=== PATIENT | male | born 1945 | race Caucasian/White ===

== ENCOUNTER → 2017-01-23 | Outpatient (CLI) | payer MEDICARE, BC ==
--- NOTE | 2017-01-23 20:38 | PN ---
DATE OF SERVICE: 01/23/2017 Rob is 71, seeing me in followup regarding his CPAP compliance. I diagnosed this patient as having severe obstructive sleep apnea with an AHI of 53. Currently he is utilizing BiPAP at a pressure of 12/8 cm of water utilizing a Simplus full-face mask, medium size. The patient reports marked clinical improvement while on BiPAP treatment. He is doing very well. His sleep quality has improved and his nocturia has also recovered. He is waking up refreshed and alert and awake during the day and his hypersomnia has completely recovered. He does not fall asleep during day-to-day activities, nor while driving. Sleep characteristics and quality have improved considerably. I checked his compliance data over the past 30 days, and based on this, the patient has been utilizing his machine more than 4 hours 100% of the time. His average BiPAP use is around 7.6 hours per night. Leak around the mask is around 7 L per minute. His AHI is down to 5. He has good humidity and good mask seal. No weight loss or weight gain. No other new-onset medical problems or comorbidities. CURRENT VITALS: BP 150/80, pulse 80, respiratory rate 16, temperature 98.2. Saturation is 96% on room air. Weight 233. GENERAL APPEARANCE: Calm, comfortable. HEENT: Negative for JVD. No goiter or neck masses. Crowding of posterior pharynx. LUNGS: Clear to auscultation. Heart sounds are regular rate and rhythm. Normal S1, S2. ABDOMEN: Soft, non-tender. No organomegaly. EXTREMITIES: No edema. No cyanosis or clubbing. IMPRESSION: 1. Symptomatic obstructive sleep apnea, severe; AHI of 54. The patient has undergone successful BiPAP therapy. 2. Severe nocturnal oxygen desaturation, recovered with BiPAP therapy. 3. Loud snoring, recovered with BiPAP therapy. 4. Hypersomnia, recovered with BiPAP therapy. Current [place] score is down to 3. PLAN: 1. Encourage weight loss. 2. Continue same BiPAP settings and same mask interface. 3. ( ) good sleep hygiene measures. 4. Clinically the patient has improved considerably, and he is benefitting from BiPAP treatment. See me back in a year's time in followup. [facility] HOSPITALPrasanth
== END | disposition home or self-care (01) ==
LOC: SLEEP 13:08
PROVIDERS: ATTEND Internal Medicine Critical Care Medicine
DX: G47.33 Obstructive sleep apnea (adult) (pediatric) (principal); G47.10 Hypersomnia, unspecified

== ENCOUNTER → 2017-06-22 | Outpatient (CLI) | payer MEDICARE, BC ==
[2017-06-22 07:46] LABS: Basophils # (A) 0.1 k/uL (0-0.2); Basophils % (A) 1 %; Eosinophils # (A) 0.5 k/uL (0-0.7); Eosinophils % (A) 6 %; HCT 51.5 % (39.0-53.0); HGB 16.1 gm/dL (13.0-17.5); Lymphocytes # (A) 3.7 k/uL (1.0-4.8); Lymphocytes % (A) 41 %; MCH 28.2 pg (25.0-35.0); MCHC 31.2 g/dL (31.0-37.0); MCV 90.5 fL (80.0-100.0); Mean Platelet Volume 7.3; Monocytes # (A) 0.4 k/uL (0-1.0); Monocytes % (A) 5 %; Neutrophils # (A) 3.9 k/uL (1.3-7.7); Neutrophils % (A) 44 %; Platelet Count 214 k/uL (150-450); RDW 14.9 % (11.5-15.5); WBC 8.9 k/uL (3.8-10.6)
[2017-06-22 09:55] LABS: ALT 45 U/L (21-72); AST 19 U/L (17-59); Albumin 4.2 g/dL (3.5-5.0); Alkaline Phosphatase 63 U/L (38-126); Anion Gap 9 mmol/L; Blood Urea Nitrogen 17 mg/dL (9-20); Calcium 9.7 mg/dL (8.4-10.2); Carbon Dioxide 31 mmol/L (22-30); Chloride 103 mmol/L (98-107); Cholesterol 185 mg/dL (<200); Glucose 116 mg/dL (74-99); HDL Cholesterol 44 mg/dL (40-60); LDL Cholesterol,Calculated 103 mg/dL (0-99); Potassium 4.5 mmol/L (3.5-5.1); Sodium 143 mmol/L (137-145); Total Bilirubin 0.5 mg/dL (0.2-1.3); Total Protein 6.8 g/dL (6.3-8.2); Triglycerides 189 mg/dL (<150)
[2017-06-22 10:12] LABS: T4, Free (Free Thyroxine) 1.14 ng/dL (0.78-2.19)
[2017-06-22 10:25] LABS: PSA Annual Screen 1.43 ng/mL (0.00-4.00)
== END | disposition home or self-care (01) ==
LOC: LABWHC1 07:10
PROVIDERS: ATTEND Internal Medicine
DX: E78.5 Hyperlipidemia, unspecified (principal); I10 Essential (primary) hypertension; Z12.5 Encounter for screening for malignant neoplasm of prostate
CPT/HCPCS: 84439; 80061; 80053; 84443; 85025; 36415; G0103

== ENCOUNTER → 2017-11-21 | Outpatient (CLI) | payer MEDICARE, BC ==
--- NOTE | 2017-11-22 10:35 | US ---
EXAMINATION TYPE: US groin RT DATE OF EXAM: 11/21/2017 COMPARISON: NONE CLINICAL HISTORY: R19.09 groin mass. Vascular right groin mass measuring 5.5 x 2.0 x 5.2cm. This could be a large lymph node. This does no t have complete filling and color-flow sonography to suggest pseudoaneurysm. IMPRESSION: 1. There appears be a very large right groin vascular mass may be a very large lymph node
== END | disposition home or self-care (01) ==
LOC: RADUSWWP 16:35
PROVIDERS: ATTEND Internal Medicine
DX: R19.09 Other intra-abdominal and pelvic swelling, mass and lump (principal)

== ENCOUNTER 2017-12-03 07:21 | Day surgery (SDC) | payer MEDICARE, BC ==
[2017-12-03 08:38] VITALS: TEMP 97.7
[2017-12-03 09:47] VITALS: BP 150/79; PULSE 64; RESP 16
--- NOTE | 2017-12-03 10:00 | US ---
ULTRASOUND GUIDED CORE BIOPSY RIGHT GROIN MASS: CLINICAL HISTORY: Right groin mass FINDINGS: The procedure was explained to the patient. The risks, complications, benefits and alternatives were discussed and any questions were answered. Informed consent was obtained. Patient was placed supin e on the ultrasound table and prepped and draped in the usual sterile fashion. Utilizing a 18-gauge core biopsy needle to passes were made into the requested mass. Patient was stable throughout the procedure. Pathology is pending. All elements of maximal barrier and sterile technique were utilized. IMPRESSION: 1. Successful ultrasound guided core biopsy right groin mass.
== END 2017-12-03 09:40 | disposition home or self-care (01) ==
LOC: RADPROMAIN 07:21
PROVIDERS: ATTEND Internal Medicine
DX: C82.05 Follicular lymphoma grade I, lymph nodes of inguinal region and lower limb (principal)
CPT/HCPCS: 20206; 76942; 88305; 88341; 88342

== ENCOUNTER → 2017-12-29 | Outpatient (CLI) | payer MEDICARE, BC ==
--- NOTE | 2017-12-29 14:15 | PE ---
EXAMINATION TYPE: PET CT fusion skull to thigh DATE OF EXAM: 12/29/2017 COMPARISON: Right groin ultrasound November 21, 2017 HISTORY: Lymphoma initial staging study on recent biopsy in November. TECHNIQUE: Following the intravenous administration of 15.35 mCi of F-18 FDG, whole body images are performed from the skull base to the midthigh. Images are reviewed on the computer in the coronal, a xial, and sagittal planes. Reconstructed rotating images are created on independent workstation and reviewed on the computer. A noncontrast CT is performed in conjunction with the PET scan. SCAN: Initial Scan FINDINGS: MEDIASTINUM MEAN SUV: 1.19 LIVER MEAN SUV: 2.6 SKULL BASE AND NECK: No suspicious areas of hypermetabolic uptake are present. CHEST, MEDIASTINUM, AND HILAR REGION: No areas of suspicious hypermetabolic uptake are present. ABDOMEN AND PELVIS: Corresponding to ultrasound and patient history there is large right groin mass m easuring 4.2 x 2.7 cm axial image 257, max SUV is 9.59. No additional areas of suspicious hypermetabolic masses or adenopathy are identified. Symmetric promi nent but subcentimeter lymph nodes in the bilateral groins axial image 241 do not show abnormal hyper metabolic uptake. OSSEOUS STRUCTURES: No areas of suspicious hypermetabolic uptake are seen. OTHER CT: Spine is straightened on sagittal images with mild multilevel spurring. There is mild to moderate mucosal thickening involving the ethmoid sinuses bilaterally with mild muco fiona thickening involving inferior frontal sinuses. There is mild mucosal thickening involving inferio r maxillary sinuses bilaterally. There is mild calcified plaque at right carotid bulb level. There is suspected right thyroid greater than 1 cm nodule axial image 74 that warrants follow-up. There is moderate coronary artery calcification is seen which is noted marker for coronary artery dis ease. There is coronary stent in the RCA distribution noted. There is calcified 4 mm right upper lobe nodule axial image 99. Liver is diffusely low dense consistent with fatty infiltration. There are diverticula throughout the colon most prominent in the left and sigmoid colon. There is no CT evidence for acute diverticulitis. There is mild to moderate calcified plaque of aorta extending into branch vessels. Bilateral gynecomastia is present. IMPRESSION: 1. Identification of biopsy-proven malignancy or lymphoma in the right groin. No metastatic disease o r additional suspicious adenopathy is evident. 2. Suspected greater than 1 cm right thyroid nodule, advise thyroid ultrasound to better evaluate and characterize.
== END | disposition home or self-care (01) ==
LOC: RADPETMAIN 08:14
PROVIDERS: ATTEND Internal Medicine Hematology & Oncology
DX: C82.05 Follicular lymphoma grade I, lymph nodes of inguinal region and lower limb (principal)
CPT/HCPCS: 78815; A9552

== ENCOUNTER 2018-01-15 05:49 | Day surgery (SDC) | payer MEDICARE, BC ==
[2018-01-10 09:36] VITALS: BMI 29.5
[~2018-01-15 05:49] MED LIST: Pre Op ABX Message 1 EACH MISC MISCELLANE ONE
[2018-01-15 06:30] VITALS: TEMP 98.2
[2018-01-15] MEDS ORDERED: LIDOCAINE 1% 20 ML VIAL (10MG/ML) FOR IV START INTRADERMA ONE (06:30)
[2018-01-15] MEDS: LACTATED RINGERS 1,000 ML IV SCH ×2 (06:30→06:55)
[2018-01-15] MEDS ORDERED: fentaNYL (PF) 50 MCG/ML 2 ML AMP ONE (06:57)
[2018-01-15] MEDS ORDERED: PROPOFOL 10 MG/ML 20 ML VIAL IV ONE (06:57)
[2018-01-15 07:43] VITALS: BP 149/83; PULSE 65; RESP 20
--- NOTE | 2018-01-15 09:29 | PCN ---
PROCEDURE NOTE DATE OF PROCEDURE: 01/15/2018 PREOPERATIVE DIAGNOSIS: Lymphoma. POSTOPERATIVE DIAGNOSIS: Lymphoma. ANESTHESIA: Local with IV systemic sedation. DETAILS: Utilizing sterile technique, the skin overlying the right iliac crest was prepared with Betadine and alcohol. After adequate sterile draping, systemic sedation and local anesthesia with 1% lidocaine, a size 11 4 inch Meteo Protectshidi needle was utilized to access the periosteum with ease. A total of 15 mL of aspirate and 3 cm bone core biopsies were obtained. The patient tolerated the procedure very well. There was no immediate procedure-related complications. TOTAL BLOOD LOSS: Less than 1 mL. RESULTS: Pending at this time. MMODL / IJN: [id number] /
[2018-01-15 10:01] LABS: Basophils % (A) 1 %; Eosinophils # (A) 0.4 k/uL (0-0.7); Eosinophils % (A) 5 %; HCT 46.9 % (39.0-53.0); Lymphocytes # (A) 2.9 k/uL (1.0-4.8); Lymphocytes % (A) 38 %; MCH 27.6 pg (25.0-35.0); MCV 86.3 fL (80.0-100.0); Mean Platelet Volume 7.5; Monocytes # (A) 0.4 k/uL (0-1.0); Monocytes % (A) 5 %; Neutrophils # (A) 3.6 k/uL (1.3-7.7); Neutrophils % (A) 48 %; Platelet Count 223 k/uL (150-450); RBC 5.44 m/uL (4.30-5.90); RDW 13.8 % (11.5-15.5); WBC 7.5 k/uL (3.8-10.6)
== END 2018-01-15 07:46 | disposition home or self-care (01) ==
LOC: OR 05:49
PROVIDERS: ATTEND Internal Medicine Hematology & Oncology
DX: C85.90 Non-Hodgkin lymphoma, unspecified, unspecified site (principal); I10 Essential (primary) hypertension; Z79.899 Other long term (current) drug therapy
CPT/HCPCS: 38222; 85025; J3010; J2704

== ENCOUNTER → 2018-04-09 | Outpatient (CLI) | payer MEDICARE, BC ==
--- NOTE | 2018-04-09 17:55 | SFUN ---
SLEEP CENTER FOLLOW UP NOTE Rob 72 and he is coming in for an annual check regarding obstructive sleep apnea. Rob is doing well. He has no specific complaints. He has severe KASSY with an AHI of 53. Currently on a BiPAP at a pressure of 12/8 cm of water. Since his last visit, he was diagnosed having non-Hodgkin's lymphoma treated by localized radiation therapy to the groin. He is currently on BiPAP with a pressure of 12 over 8. He is utilizing a Simplus full face mask. AHI is down to 5.7 while on treatment. He is averaging around 8.6 hours of CPAP use per night and CPAP use for more than 4 hours 100%. Leak is 4 L/minute. AHI while on treatment is down to 5.7, respiratory rate of 16, tidal volumes of 500. No major hypersomnia or sleepiness during the day. No other complaints otherwise for now, his weight has been stable with probably 4-5 pounds weight gain over the past 1 year. PHYSICAL EXAMINATION: BP is 148/65, pulse 82, respirations 16, temperature 98.3, saturation 96% on room air. Weight 238. Height is 6'0 ". BMI 32.2. GENERAL APPEARANCE: Calm, comfortable. Head is atraumatic, normocephalic. NECK: Supple. There is no JVD. No goiter or neck masses. LUNGS: Clear to auscultation. HEART: Sounds regular rate and rhythm. Normal S1, S2. No S3. No murmurs. ABDOMEN: Soft, nontender. No organomegaly. EXTREMITIES: No edema. No cyanosis or clubbing. NEUROLOGIC: Alert and oriented x3. There is no focal neurological deficits. PSYCHIATRIC: Is negative for anxiety or depression. IMPRESSION: 1. Severe symptomatic obstructive sleep apnea, AHI 54 currently on BiPAP, would continue with successful treatment, pressures of 12/8. 2. Severe nocturnal oxygen desaturation improved. 3. Loud snoring recovered. 4. Recent diagnosis of non-Hodgkin's lymphoma, treated. PLAN: 1. Continue BiPAP at the same level of pressure. 2. Encourage weight loss. 3. The compliance data was checked and numbers are all looking good. 4. The patient continues to benefit with a Simplus full face mask. 5. See me back in a year's time, earlier if needed. MMODL / IJN: [id number] /
== END | disposition home or self-care (01) ==
LOC: SLEEP 16:39
PROVIDERS: ATTEND Internal Medicine Critical Care Medicine
DX: G47.33 Obstructive sleep apnea (adult) (pediatric) (principal); Z85.72 Personal history of non-Hodgkin lymphomas; Z99.89 Dependence on other enabling machines and devices; Z92.3 Personal history of irradiation

== ENCOUNTER → 2018-05-20 | Outpatient (CLI) | payer MEDICARE, BC ==
--- NOTE | 2018-05-20 13:47 | CT ---
EXAMINATION TYPE: CT ChestAbdPelvis wo/w con DATE OF EXAM: 05/20/2018 COMPARISON: 12/29/2017 HISTORY: Recent diagnosis of lymphoma per patient CT DLP: 2920.6 mGycm Automated exposure control for dose reduction was used. CONTRAST: CT scan of the chest, abdomen and pelvis is performed with Oral Contrast and without and with IV Cont rast, patient injected with 100 mL of Isovue 300. FINDINGS: LUNGS: Calcified nodule in the right upper lobe measuring 6 mm most likely in the basis of a granulom a additional nodule seen on image 23 measuring 3 mm. There is a 2 mm nodule superior segment left low er lobe image 26. Subpleural nodule right upper lobe image 37 measuring 2 mm. Areas of subsegmental, consolidation posteriorly at the lung bases most typical of atelectasis. 2 mm nodule at the left lung base also noted. MEDIASTINUM: Small amount of fluid is seen superior pericardial recess compatible small pericardial e ffusion. Coronary artery calcification noted in the heart is at the upper limits of normal. Small hia kyrie hernia seen. Subcentimeter thyroid nodule suspected on the right. OTHER: Trace amount of gynecomastia noted. LIVER/GB: No significant abnormality is appreciated. PANCREAS: No significant abnormality is seen. SPLEEN: No significant abnormality is seen. ADRENALS: No significant abnormality is seen. KIDNEYS: Tiny hypodensity measuring 5 mm inferior pole right kidney and mid left kidney too small to characterize. Most likely related to tiny simple cysts. BOWEL: Diverticulosis of colon. No evidence of obstruction. I'll thickening the wall the right colon . LYMPH NODES: Large area of lymphadenopathy in the right inguinal region is markedly reduced in size n ow measuring 1.7 x 0.7 cm and previously measuring 4.2 x 2.7 cm. OSSEOUS STRUCTURES: Hypertrophic and degenerative changes of the vertebral column. Sclerotic density involving the right inferior pubic ramus likely related to bone island. Sclerotic density involving t he L4 vertebral segment is too small to characterize but likely related to a bone island. OTHER: Aorta of normal caliber. IMPRESSION: 1. There is marked interval reduction size of the right groin area of adenopathy now measuring 1.7 x 0.7 cm and previously measuring 4.2 x 2.7 cm. 2. Mild thickening the wall the right colon most likely the basis of incomplete distention. Correlate clinically to exclude a mild colitis or less likely mucosal lesion. 3. Subcentimeter right thyroid nodule. 4. There is a calcified nodule in the right lung which is compatible with a granuloma. Additional les s than 5 mm nodules too small to characterize which could be followed on six-month basis
== END | disposition home or self-care (01) ==
LOC: RADCTMAIN 11:23
PROVIDERS: ATTEND Radiology Radiation Oncology
DX: E04.1 Nontoxic single thyroid nodule (principal); K63.89 Other specified diseases of intestine; J84.10 Pulmonary fibrosis, unspecified; R59.0 Localized enlarged lymph nodes; C82.05 Follicular lymphoma grade I, lymph nodes of inguinal region and lower limb
CPT/HCPCS: 82565; 84520; 71270; 74178; 36415; Q9967

== ENCOUNTER → 2018-08-17 | Outpatient (CLI) | payer MEDICARE, BC ==
[2018-08-17 08:34] LABS: Basophils # (A) 0.1 k/uL (0-0.2); Basophils % (A) 1 %; Eosinophils # (A) 0.4 k/uL (0-0.7); Eosinophils % (A) 5 %; HCT 47.7 % (39.0-53.0); HGB 15.6 gm/dL (13.0-17.5); Lymphocytes # (A) 3.2 k/uL (1.0-4.8); Lymphocytes % (A) 39 %; MCH 28.8 pg (25.0-35.0); MCHC 32.6 g/dL (31.0-37.0); MCV 88.2 fL (80.0-100.0); Mean Platelet Volume 7.2; Monocytes # (A) 0.4 k/uL (0-1.0); Monocytes % (A) 5 %; Neutrophils # (A) 3.9 k/uL (1.3-7.7); Neutrophils % (A) 47 %; Platelet Count 195 k/uL (150-450); RDW 13.9 % (11.5-15.5); WBC 8.2 k/uL (3.8-10.6)
[2018-08-17 17:29] LABS: Anion Gap 6.1 mmol/L (4.00-12.00); Calcium 9.7 mg/dL (8.7-10.3); Carbon Dioxide 28.9 mmol/L (21.6-31.8); Potassium 4.5 mmol/L (3.5-5.5)
== END ==
LOC: LABWHC1 08:12
PROVIDERS: ATTEND Radiology Radiation Oncology
DX: C82.05 Follicular lymphoma grade I, lymph nodes of inguinal region and lower limb (principal); C82.00 Follicular lymphoma grade I, unspecified site; Z92.3 Personal history of irradiation
CPT/HCPCS: 36415; 80048; 84153; 85025

== ENCOUNTER → 2018-11-18 | Outpatient (CLI) | payer MEDICARE, BC ==
--- NOTE | 2018-11-18 08:27 | CT ---
EXAMINATION TYPE: CT ChestAbdPelvis wo con DATE OF EXAM: 11/18/2018 COMPARISON: 05/20/2018 HISTORY: Follicular lymphoma grade I, lymph nodes of inguinal region and lower limb CT DLP: 1695 mGycm. Automated Exposure Control for Dose Reduction was Utilized. TECHNIQUE: CT scan of the thorax, abdomen and pelvis is performed without IV contrast. FINDINGS: LUNGS: Calcified nodule in the right upper lobe measuring 6 mm most likely in the basis of a granulom a additional nodule seen on image 23 measuring 3 mm. There is a 2 mm nodule superior segment left low er lobe. Subpleural nodule right upper lobe measuring 2 mm. Areas of subsegmental, consolidation post eriorly at the lung bases most typical of atelectasis. There are additional 2 mm nodule nodules at th e left lung base also noted. 2 mm additional subpleural right lung nodules also noted. Nodules are st able relative to prior exam. MEDIASTINUM: Small amount of fluid is seen superior pericardial recess compatible small pericardial e ffusion. Coronary artery calcification noted in the heart is at the upper limits of normal. Small hia kyrie hernia seen. Subcentimeter thyroid nodule suspected on the right. OTHER: Incidental note made of gynecomastia. LIVER/GB: No significant abnormality is appreciated. PANCREAS: No significant abnormality is seen. SPLEEN: No significant abnormality is seen. ADRENALS: No significant abnormality is seen. KIDNEYS: Tiny hypodensity measuring 5 mm inferior pole right kidney and mid left kidney too small to characterize. Most likely related to tiny simple cysts. Nonobstructing punctate 1 mm mid pole right r enal calculus. BOWEL: Diverticulosis of colon. No evidence of obstruction. I'll thickening the wall the right colon . LYMPH NODES: Right inguinal lymph node measures 1.3 x 0.7 cm and previously measured 1.7 x 0.7 cm.. OSSEOUS STRUCTURES: Hypertrophic and degenerative changes of the vertebral column. Sclerotic density involving the right inferior pubic ramus likely related to bone island. Sclerotic density involving t he L4 vertebral segment is too small to characterize but likely related to a bone island. OTHER: Aorta of normal caliber. IMPRESSION: 1. Right inguinal lymph node appears similar in size measuring 1.3 x 0.7 cm and producing measuring 1 .7 x 0.7 cm. 2. Stable right-sided thyroid nodule. 3. Stable pulmonary nodules too small to characterize measuring 5 mm or less. Additional 6 month foll ow-up could be obtained to document stability over the course of 2 years.
== END | disposition home or self-care (01) ==
LOC: RADCTMAIN 07:36
PROVIDERS: ATTEND Radiology Radiation Oncology
DX: C82.05 Follicular lymphoma grade I, lymph nodes of inguinal region and lower limb (principal); R91.8 Other nonspecific abnormal finding of lung field; E04.1 Nontoxic single thyroid nodule; Z92.3 Personal history of irradiation
CPT/HCPCS: 71250; 74176

== ENCOUNTER → 2019-05-27 | Outpatient (CLI) | payer MEDICARE, BC ==
--- NOTE | 2019-05-27 13:25 | CT ---
EXAMINATION TYPE: CT ChestAbdPelvis wo con DATE OF EXAM: 05/27/2019 COMPARISON: CT chest abdomen pelvis dated 11/18/2018 and 05/20/2018 with PET/CT of 12/29/2017 HISTORY: Follow up scan per patient. Grade I follicular lymphoma. CT DLP: 1116.3 mGycm. Automated Exposure Control for Dose Reduction was Utilized. TECHNIQUE: CT scan of the thorax, abdomen and pelvis is performed without IV contrast. FINDINGS: LUNGS: Calcified right midlung granuloma on image 24. There are scattered 2-3 mm solid pulmonary nodu les marked on the images that appear stable. There is no pleural effusion or pneumothorax seen. Th e tracheobronchial tree is patent. MEDIASTINUM: There are no greater than 1 cm hilar or mediastinal lymph nodes. No pericardial effusi on is seen. Moderate coronary artery calcifications. OTHER: Approximately 1.9 cm right thyroid nodules also stable. Mild bilateral symmetric retroareolar probable gynecomastia. LIVER/GB: Change hypoattenuation along the hepatic dome on image 47 could relate to volume averaging from the adjacent diaphragm.. PANCREAS: No significant abnormality is seen. SPLEEN: No significant abnormality is seen. ADRENALS: No significant abnormality is seen. KIDNEYS: Too small to accurately characterize renal lesions are better seen on the prior. Nonobstruct ing punctate right midpole renal calculus measures 1 to 2 mm. BOWEL: Scattered colonic diverticula without pericolonic fat stranding. No dilated large or small bow el. Slightly low lying small bowel in the right lower quadrant. GENITAL ORGANS: No gross abnormality seen. LYMPH NODES: No greater than 1cm abdominal or pelvic lymph nodes are appreciated. The previously enla rged right superficial inguinal lymph node seen on the PET/CT of 12/29/2017 is now barely perceptible measuring only 4 mm in short axis. OSSEOUS STRUCTURES: Stable sclerotic focus of the bilateral ischium, probable bone island. Similar le lila of L4 is unchanged. Mild multilevel degenerative change of the spine. IMPRESSION: 1. No new adenopathy in the chest, abdomen, or pelvis. The previously enlarged right superficial ingu inal lymph node is now nearly imperceptible. 2. Possible stable hepatic lesion versus more likely volume averaging from the adjacent diaphragm. 3. Stability of the 2 to 3 mm multiple pulmonary nodules and right thyroid nodule. Continued surveill ance is recommended.
== END | disposition home or self-care (01) ==
LOC: RADCTMAIN 11:15
PROVIDERS: ATTEND Radiology Radiation Oncology
DX: E04.1 Nontoxic single thyroid nodule (principal); R91.8 Other nonspecific abnormal finding of lung field; C82.00 Follicular lymphoma grade I, unspecified site; Z92.3 Personal history of irradiation
CPT/HCPCS: 71250; 74176

== ENCOUNTER → 2019-05-30 | Outpatient (CLI) | payer MEDICARE, BC ==
[2019-05-30 07:24] LABS: Basophils # (A) 0.1 k/uL (0-0.2); Basophils % (A) 1 %; Eosinophils # (A) 0.5 k/uL (0-0.7); Eosinophils % (A) 6 %; HCT 46.6 % (39.0-53.0); HGB 15.5 gm/dL (13.0-17.5); Lymphocytes # (A) 2.9 k/uL (1.0-4.8); Lymphocytes % (A) 37 %; MCH 29.2 pg (25.0-35.0); MCHC 33.2 g/dL (31.0-37.0); Mean Platelet Volume 7.4; Monocytes # (A) 0.4 k/uL (0-1.0); Monocytes % (A) 5 %; Neutrophils # (A) 3.7 k/uL (1.3-7.7); Neutrophils % (A) 48 %; Platelet Count 192 k/uL (150-450); RDW 13.5 % (11.5-15.5); WBC 7.7 k/uL (3.8-10.6)
[2019-05-30 12:04] LABS: T4, Free (Free Thyroxine) 1.1 ng/dL (0.80-1.80)
[2019-05-30 12:15] LABS: African American GFR (CKD) 62.7 (60.0-200.0); Albumin 4.3 g/dL (3.80-4.90); Albumin/Globulin Ratio 2.69 (1.60-3.17); Anion Gap 9.8 mmol/L (4.00-12.00); BUN/Creat Ratio 14.62 Ratio (12.00-20.00); Calcium 9.7 mg/dL (8.7-10.3); Carbon Dioxide 28.2 mmol/L (21.6-31.8); Chol/HDL Ratio 3.91; Globulin 1.6 g/dL (1.6-3.3); LDL Cholesterol,Calculated 88.6 mg/dL (0.0-131.0); Non-African American GFR(CKD) 54.1 (60.0-200.0); Potassium 4.3 mmol/L (3.5-5.5); Total Bilirubin 0.5 mg/dL (0.2-1.2); Total Protein 5.9 g/dL (6.2-8.2); VLDL Calculation 39.4 mg/dL (5.00-40.00)
== END | disposition home or self-care (01) ==
LOC: LABWHC1 06:53
PROVIDERS: ATTEND Internal Medicine
DX: Z00.00 Encounter for general adult medical examination without abnormal findings (principal); E78.5 Hyperlipidemia, unspecified
CPT/HCPCS: 84439; 80061; 80053; 84443; 85025; 36415; G0103

== ENCOUNTER → 2019-06-20 | Outpatient (CLI) | payer MEDICARE, BC ==
--- NOTE | 2019-06-20 15:02 | CT ---
EXAMINATION TYPE: CT soft tissue neck w con DATE OF EXAM: 06/20/2019 COMPARISON: None HISTORY: lymphoma CT DLP: 548 mGycm CONTRAST: Patient injected with 80 mL of Isovue 300. TECHNIQUE: Axial images at 3 mm thick sections. Reconstructed images in the coronal plane and sagitt al plane are reviewed. FINDINGS: Limited CT sections are obtained the lung apices. The lung apices appear clear. There is a 1.0 cm lymph node in the pretracheal space within the [id number]. CT neck: The torus tubarius and fossa of [place] are normal. [employer] spaces are normal. Ther e is mucosal thickening within the right maxillary sinus and ethmoid air cells. Parotid glands appear normal and symmetrical. Submandibular glands, are normal. Parapharyngeal spac es are normal. The hypopharynx appears within normal limits. Small lymph nodes are in the right supraclavicular region. There is a 1.4 cm lymph node at the level of the thyroid in the right supraclavicular region. Series 3 image 31. There are multiple right neck lymph nodes which are enlarged. A number of lymph nodes which are enlarged are posterior to the right sternocleidomastoid muscle. These were not present on the PET/CT of 12/29/2017 Thyroid is heterogenous and has a hypodense lesion within the mid right lobe thyroid measuring 1.2 cm . Osseous structures are normal. IMPRESSIONS: 1. Multiple enlarged right side neck lymph nodes extending from the supraclavicular region to the sub sternocleidomastoid muscle region near the skull base. Recommend follow-up PET CT.
== END | disposition home or self-care (01) ==
LOC: RADCTMAIN 05:47
PROVIDERS: ATTEND Otolaryngology
DX: R59.9 Enlarged lymph nodes, unspecified (principal); C82.05 Follicular lymphoma grade I, lymph nodes of inguinal region and lower limb; Z92.3 Personal history of irradiation
CPT/HCPCS: 82565; 84520; 70491; 36415; Q9967

== ENCOUNTER → 2019-07-04 | Outpatient (CLI) | payer MEDICARE, BC ==
--- NOTE | 2019-07-07 13:05 | PE ---
Nuclear medicine PET/CT HISTORY: Lymphoma, subsequent Patient received 12.3 mCi F-18 FDG intravenously in delayed scanning was performed from the skull bas e to the mid thighs. Localization and attenuation correction CT scan was performed. Correlation to soft tissue neck CT 07/17/2019, CT chest abdomen pelvis 05/27/2019, prior nuclear medic ine PET/CT 12/29/2017 Neck and chest: The right-sided cervical adenopathy is extensive as noted on prior neck CT with SUV 1 5.3, there is associated hypermetabolic uptake present, abnormal soft tissue extends into the region of the piriform sinus on the right and also shows hypermetabolic uptake SUV 19.2, there is abnormal u ptake along the posterior and anterior cervical chains, supraclavicular region on the right where the re is corresponding adenopathy, SUV 8-14.2. No mediastinal, axillary, or hilar adenopathy. No evident pleural effusion. No change in the appearan ce of the lungs. There are coronary artery calcifications present. ABDOMEN: No retroperitoneal adenopathy. No evident ascites or liver mass. Diverticular change associa jessie with the sigmoid colon. Prostate calcifications are present. Left groin shows nonenlarged nodes with associated hypermetabolic uptake, SUV 2.7-4.4. Osseous structures show no suspicious hypermetabolic uptake. Uptake along the anus and colon is likel y physiologic. IMPRESSION: Abnormal hypermetabolic uptake as described
== END | disposition home or self-care (01) ==
LOC: RADPETMAIN 16:24
PROVIDERS: ATTEND Internal Medicine Hematology & Oncology
DX: R93.89 Abnormal findings on diagnostic imaging of other specified body structures (principal); C82.00 Follicular lymphoma grade I, unspecified site
CPT/HCPCS: 78815; A9552

== ENCOUNTER → 2019-07-29 | Outpatient (CLI) | payer MEDICARE, BC ==
--- NOTE | 2019-07-29 22:59 | PN ---
PROGRESS NOTE This is a very pleasant 74-year-old gentleman who has a known history of obstructive sleep apnea with an AHI of 53. He has been maintained on BiPAP at a pressure of 12/8 cm of water. He has a simplest full face mask and is tolerating the device very well. He has utilized the device 28/30 days averaging approximately 9.2 hours. The leak is 12 L/minute. Tidal volume is 500, respiratory rate 17, minute ventilation 9.0. His AHI is down to 5.4 with a total AI of 4.3 and central AI 2.2. He has been doing well from the sleep standpoint. However, he was recently diagnosed with lymphoma and had a lymph node resection of the right neck in the tonsil biopsy. He has received 1 round of chemotherapy and is planning for another round next week. Currently, his weight has remained stable at 234 pounds with a BMI of 31.7. PHYSICAL EXAM: This is a very pleasant 74-year-old gentleman in no acute distress. Vital signs revealed blood pressure 148/94, heart rate 92, respirations 16, temperature is 98.2. He is 95% O2 saturation on room air. Weight 234 pounds, 6 foot 1 inch, BMI 31.7 with an [place] Sleepiness Scale score of 3. His head is normocephalic. Sclerae anicteric. There is some crowding in the posterior pharynx. His neck is short, supple. Trachea midline. His lungs are clear anterior and posteriorly. Heart regular S1, S2. His abdomen is obese, soft, nontender. Bowel sounds are present. There is no significant peripheral edema. Peripheral pulses are intact. IMPRESSION: 1. Severe symptomatic obstructive sleep apnea with AHI of 54, currently on BiPAP with a treatment of 12.8. 2. Severe nocturnal oxygen desaturation, improved. 3. Loud snoring, recovered. 4. Recent diagnosis of non-Hodgkin's lymphoma. PLAN: The patient's case was reviewed and discussed with Dr. Martins. He is doing well as far as his sleep apnea is concerned. We will continue with his current settings. He has the equipment that he needs. He will see us back in 1 year or call sooner with any questions or concerns. I, the cosigning physician, performed a history and physical examination on the patient. Lung sounds are clear. Maintain O2 saturation in 90s on room air. I discussed the assessment and plan of care with my nurse practitioner, Krystle Bah. I attest to the above progress note as dictated by her. MMRAMILAL / IJN: [id number] /
== END | disposition home or self-care (01) ==
LOC: SLEEP 16:45
PROVIDERS: ATTEND Internal Medicine Critical Care Medicine
DX: G47.33 Obstructive sleep apnea (adult) (pediatric) (principal); C85.90 Non-Hodgkin lymphoma, unspecified, unspecified site; Z99.89 Dependence on other enabling machines and devices

== ENCOUNTER → 2019-10-10 | Outpatient (CLI) | payer MEDICARE, BC ==
--- NOTE | 2019-10-13 08:16 | PE ---
EXAMINATION TYPE: PET CT fusion skull to thigh DATE OF EXAM: 10/10/2019 COMPARISON: CT soft tissue neck 06/20/2019, CT chest abdomen pelvis 05/27/2019 Prior PET/CT: 07/04/2019 HISTORY: Lymphoma TECHNIQUE: Following the intravenous administration of 12.0 mCi of F-18 FDG, whole body images are p erformed from the skull base to the midthigh. Images are reviewed on the computer in the coronal, ax ial, and sagittal planes. Reconstructed rotating images are created on independent workstation and r eviewed on the computer. A localization and attenuation correction CT is performed in conjunction w ith the PET scan. DLP: 483.10 mGycm SCAN: Subsequent Blood glucose: 148 mg/dL Average Mediastinum SUV: 1.61 Average Liver SUV: 2.47 FINDINGS: Uptake is at the left antecubital injection site. NECK: No abnormal uptake THORAX: No abnormal uptake ABDOMEN: No abnormal uptake PELVIS: No abnormal uptake OSSEOUS STRUCTURES: No abnormal uptake LOCALIZATION CT: There may be a nodule on the inferior pole right lobe thyroid. Some beam hardening a rtifact is also present causing some limitation to this level. The ascending thoracic aorta at the pu lmonary artery is 4.7 cm. The main pulmonary artery the bifurcation is 2.6 cm. Coronary artery calcif ication is present. COMPARISON: Previous marked abnormal uptake within the right neck is not evident on the current exam. Underlying adenopathy is not identified. IMPRESSION: 1. No suspicious uptake to suggest recurrent or residual lymphoma by PET CT. Previous marked uptake w ithin enlarged lymph nodes within the right neck are not evident on the current exam. 2. Note is made of ascending thoracic aortic aneurysm measuring 4.7 cm AP dimension, stable from [facility].
== END | disposition home or self-care (01) ==
LOC: RADPETMAIN 07:22
PROVIDERS: ATTEND Internal Medicine Hematology & Oncology
DX: I71.2 Thoracic aortic aneurysm, without rupture (principal); C82.00 Follicular lymphoma grade I, unspecified site; C82.01 Follicular lymphoma grade I, lymph nodes of head, face, and neck
CPT/HCPCS: 78815; A9552

== ENCOUNTER → 2019-10-20 | Outpatient (CLI) | payer MEDICARE, BC ==
--- NOTE | 2019-10-20 15:44 | US ---
EXAMINATION TYPE: US venous doppler duplex LE LT DATE OF EXAM: 10/20/2019 3:29 PM COMPARISON: NONE CLINICAL HISTORY: M79.662 Pain in left lower leg. Intermittent left leg pain x 1 week, gets worse at night SIDE PERFORMED: Left TECHNIQUE: The lower extremity deep venous system is examined utilizing real time linear array sonog rosendo with graded compression, doppler sonography and color-flow sonography. VESSELS IMAGED: External Iliac Vein (EIV) Common Femoral Vein Deep Femoral Vein Greater Saphenous Vein * Femoral Vein Popliteal Vein Small Saphenous Vein * Proximal Calf Veins (* superficial vessels) Left Leg: Appears negative for DVT IMPRESSION: No evidence of DVT at this time.
== END | disposition home or self-care (01) ==
LOC: RADUSWWP 14:19
PROVIDERS: ATTEND Internal Medicine
DX: M79.662 Pain in left lower leg (principal)

== ENCOUNTER → 2020-04-02 | Outpatient (CLI) | payer MEDICARE, BC ==
--- NOTE | 2020-04-04 13:05 | PE ---
Nuclear medicine PET/CT HISTORY: Lymphoma subsequent, C 82.01 Patient received 10.3 mCi F-18 FDG intravenously in delayed scanning was performed from the skull bas e to the mid thighs. Localization and attenuation correction CT scan has been performed. Correlation prior nuclear medicine PET/CT 10/10/2019, 07/04/2019 Chest and neck: The nodes present along the submandibular location on the right, along the anterior m argin of the sternocleidomastoid muscle at the level of the hyoid are stable as compared to most rece nt exam There is no supraclavicular adenopathy. No suspicious uptake. Uptake along the nose is likely physiologic. Calcification in the submandibular location on the left is stable. No evident lung mass . No pleural or pericardial effusion. Calcification the right upper lobe is stable consistent with ol d granulomatous disease. There are coronary artery calcifications present. Proximal descending aorta is aneurysmal at approximately 4 cm. Ascending aorta is 4.5 cm. ABDOMEN: There is uptake which is more intense at the level of the cecum as compared to previous exam inations. There is no evident liver mass or retroperitoneal adenopathy. No ascites. Osseous structures show possible marrow activation changes. IMPRESSION: No suspicious uptake present within the neck. Uptake within the cecum is indeterminate, i f bowel surveillance has not been performed, then it should be considered. Aortic aneurysm.
== END | disposition home or self-care (01) ==
LOC: RADPETMAIN 08:50
PROVIDERS: ATTEND Internal Medicine Hematology & Oncology
DX: I71.2 Thoracic aortic aneurysm, without rupture (principal); C82.01 Follicular lymphoma grade I, lymph nodes of head, face, and neck
CPT/HCPCS: 78815; A9552

== ENCOUNTER → 2020-04-27 | Day surgery (SDC) | payer MEDICARE, BC ==
[~2020-04-27] MED LIST changes: +LACTATED RINGERS 1,000 ML IV ONE; +LIDOCAINE 1% (10MG/ML) FOR IV START INTRADERMA ONE; +PROPOFOL 10 MG/ML 20 ML VIAL IV ONE; -Pre Op ABX Message 1 EACH MISC MISCELLANE ONE
[2020-04-27 12:13] VITALS: RESP 16; TEMP 98.7
--- NOTE | 2020-04-27 14:57 | P.PCN ---
Date of Procedure: 04/27/20 Description of Procedure: BRIEF HISTORY: 74-year-old male with a known history of B-cell lymphoma currently undergoing chemotherapy who presents for colonoscopy for evaluation of abnormal abdominal CAT scan, abnormal imaging of the abdomen. The patient denies any change in bowel habits. Last colonoscopy 7 years ago. PROCEDURE PERFORMED: Colonoscopy with biopsy, polypectomy and excessive. PREOPERATIVE DIAGNOSIS: Abnormal abdominal CAT scan/PET scan, abnormal imaging abdomen, last colonoscopy 7 years. ESTIMATED BLOOD LOSS: Minimal. IV sedation per Anesthesia. PROCEDURE: After informed consent was obtained, the patient, was brought into the endoscopy unit. IV sedation was administered by Anesthesia under continuous monitoring. Digital rectal examination was normal. Initially the Olympus CF-190 flexible video colonoscope was then inserted in the rectum, gradually advanced into the cecum without any difficulty. Careful examination was performed as the scope was gradually being withdrawn. Ileocecal valve and the appendiceal orifice were visualized. Prep was excellent. Mucosa of the cecum, ascending colon, transverse colon, descending colon, sigmoid colon, and rectum appeared normal. There was a large nonobstructing 5 cm mass located on the ileocecal valve which was quite friable, unclear if this is a malignancy given findings of indeterminate uptake on PET scan or a large polyp with multiple biopsies taken of the mass and a tattoo placed distal to the mass. 2 polyps removed from the transverse colon with cold snare polypectomy one which was flat and measuring 3 mm in size and one which was pedunculated and measuring 8 mm in size. Multiple left colonic diverticula noted. Low-grade internal hemorrhoids. Retroflexion was performed in the rectum and no lesions were seen. The patient tolerated the procedure well. IMPRESSION: Nonobstructing ileocecal mass, biopsied with tattoo placed distal to the mass. Severe left colonic diverticulosis. Internal hemorrhoids. RECOMMENDATIONS: Findings of this examination were discussed with the patient and his at length. Patient should follow-up in the clinic next week for results of the biopsies, with nursing staff instructed to make an appointment. Unclear if the mass is secondary to colonic lymphoma, a secondary malignancy, a large mass or other etiology. Further recommendations will be made pending the findings of the biopsies. The patient currently does have an appointment with the oncology in approximately one month, this may have been, pending pathology.
[2020-04-27 15:01] VITALS: BP 148/80; PULSE 64
== END ==
LOC: ORWHC2ENDO 11:47
PROVIDERS: ATTEND Internal Medicine
DX: D12.3 Benign neoplasm of transverse colon (principal); K57.30 Diverticulosis of large intestine without perforation or abscess without bleeding; K64.8 Other hemorrhoids; C85.10 Unspecified B-cell lymphoma, unspecified site; I10 Essential (primary) hypertension; Z79.899 Other long term (current) drug therapy; Z79.82 Long term (current) use of aspirin; Z98.52 Vasectomy status; Z98.890 Other specified postprocedural states
CPT/HCPCS: 45385; 45380; 45381; 88305; J2704; 44404

== ENCOUNTER → 2020-05-24 | Outpatient (CLI) | payer MEDICARE, BC ==
[2020-05-24 12:24] LABS: HCT 44.1 % (39.0-53.0); HGB 14.9 gm/dL (13.0-17.5); MCHC 33.7 g/dL (31.0-37.0); MCV 89.1 fL (80.0-100.0); Mean Platelet Volume 7.2; Platelet Count 181 k/uL (150-450); RBC 4.96 m/uL (4.30-5.90); RDW 14.2 % (11.5-15.5); WBC 9.5 k/uL (3.8-10.6)
[2020-05-24 12:30] LABS: Potassium 4.4 mmol/L (3.5-5.1)
== END | disposition home or self-care (01) ==
LOC: LABPAT 11:05
PROVIDERS: ATTEND Surgery
DX: Z01.818 Encounter for other preprocedural examination (principal); K63.9 Disease of intestine, unspecified
CPT/HCPCS: 36415; 80051; 85027; 93005

== ENCOUNTER → 2020-05-28 | Outpatient (CLI) | payer MEDICARE, BC | END | disposition home or self-care (01) | LOC: LABPAT 07:14 | PROVIDERS: ATTEND Surgery | DX: Z01.818 Encounter for other preprocedural examination (principal); I10 Essential (primary) hypertension | CPT/HCPCS: 86850; 86900; 86901 ==

== ENCOUNTER 2020-06-07 11:15 | Inpatient (IN) | payer MEDICARE, BC ==
[2020-06-03 11:37] VITALS: BMI 31.7
[~2020-06-07 11:15] MED LIST changes: +ACETAMINOPHEN TAB 500 MG TAB PO PRN; +ALVIMOPAN 12 MG CAPSULE PO PRN; +DEXAMETHASONE SOD PHOSPHATE 4 MG/ML 1 ML VIAL IV ONE; +HEPARIN SODIUM,PORCINE 5,000 UNIT/ML 1 ML VIAL SQ PRN; +HYDROmorphone 0.5 MG/0.5 ML SYRINGE IVP PRN; -LACTATED RINGERS 1,000 ML IV ONE; -LIDOCAINE 1% (10MG/ML) FOR IV START INTRADERMA ONE; +ONDANSETRON 4 MG/2 ML VIAL IVP ONE; -PROPOFOL 10 MG/ML 20 ML VIAL IV ONE; +metroNIDAZOLE-NS PMX 500 MG in SALINE 1 100ML.BAG IVPB PRN
[2020-06-07] MEDS: LACTATED RINGERS 1,000 ML IV SCH (12:18)
[2020-06-07] MEDS ORDERED: KETAMINE 10 MG/ML 20 ML VIAL ONE (12:58)
[2020-06-07] MEDS ORDERED: GLYCOPYRROLATE 0.2 MG/ML 2 ML VIAL ONE (12:58)
[2020-06-07] MEDS ORDERED: ROCURONIUM 10 MG/ML (10 ML VIAL) IV ONE (12:58)
[2020-06-07] MEDS ORDERED: PHENYLEPHRINE 10 MG/ML VIAL ONE (12:58)
[2020-06-07] MEDS ORDERED: NEOSTIGMINE 1 MG/ML 10 ML VIAL ONE (12:58)
[2020-06-07] MEDS ORDERED: LIDOCAINE 1% INJ 10MG/ML (20 ML MDV) ONE (12:58)
[2020-06-07] MEDS ORDERED: PROPOFOL 10 MG/ML 20 ML VIAL IV ONE (12:58)
[2020-06-07] MEDS ORDERED: fentaNYL (PF) 50 MCG/ML 2 ML AMP ONE (12:58)
[2020-06-07] MEDS ORDERED: SUCCINYLCHOLINE CHLORIDE 100 MG/5 ML SYR IV ONE (12:58)
[2020-06-07] MEDS ORDERED: BUPIVACAINE (PF) 0.25% 30 ML VIAL SQ ONE (13:37)
[2020-06-07] MEDS ORDERED: LACTATED RINGERS 1,000 ML IV ONE ×2 (15:15→17:03)
[2020-06-07] MEDS ORDERED: ONDANSETRON 4 MG/2 ML VIAL IVP PRN (17:06)
[2020-06-07] MEDS ORDERED: METOCLOPRAMIDE 5 MG/ML 2 ML VIAL IVP PRN (17:06)
[2020-06-07] MEDS ORDERED: HYDROmorphone 1 MG/ML 1 ML SYRINGE IVP PRN (17:06)
--- NOTE | 2020-06-07 17:13 | P.OP ---
Date of Procedure: 06/07/20 Procedure(s) Performed: PREOPERATIVE DIAGNOSIS: Right-sided colon mass POSTOPERATIVE DIAGNOSIS: Same, intra-abdominal adhesions PROCEDURE: Laparoscopic da Bess assisted right colectomy with intracorporeal anastomosis, laparoscopic lysis of adhesions SURGEON: Batsheva EBL: Minimal see anesthesia records ANESTHESIA: General COMPLICATIONS: None OPERATIVE PROCEDURE: Patient was placed on the operating table in the supine position. The patient was placed under general anesthesia. A Galeano catheter was placed. The patient's arms were tucked. The abdomen was prepped and draped in usual sterile fashion. Entrance into the perineal cavity occurred through a 5 mm optical trocar in the left midabdomen. This was performed without difficulty. The patient was noted to have a large amount of adhesions between the omentum and the abdominal wall extending down into the pelvis. A 12 mm trocar was placed in the left subcostal location. The laparoscopic anahi were used to carefully mobilize these adhesions fully. Once we had adequate space the initial 5 was changed over to an 8 mm trocar. An 8 mm trocar was placed in the left lower quadrant as well as a 12 mm trocar in the suprapubic location. The patient was placed in Trendelenburg right side up. The liver was free of any evidence of distant metastasis. He was difficult to visualize the patient's ileocolic pedicle well and the duodenum. Given the fact that this was a benign but unresectable polyp of high-grade dysplasia we decided to stay higher up on the mesentery for our dissection. For that reason we started with a lateral to medial dissection. The terminal ileum cecum and ascending colon were mobilized by incising the white line of Toldt. The bowel was able to be brought medially. The gastrocolic omentum was dissected away from the proximal transverse colon. Once we were able to visualize the transverse colon and hepatic flexure well the proximal transverse colon was divided using a blue load 60 stapler. The mesentery of the transverse colon was then divided using the vessel sealer as well. The small bowel was divided as well using a robotic blue load stapler. The remainder of the mesentery was again divided using the vessel sealer. A single area of bleeding was noted along the transverse colon staple line. This was controlled using a 12 mm clipper. No further bleeding was seen. At this point our specimen was free and placed in the left upper quadrant. The terminal ileum was brought in an isoperistaltic manner adjacent to the transverse colon. 2 separate 3-0 GI silk stay sutures were placed proximally and distally. Small enterotomy and colotomy took place. At that time stapler was fired along the a ntimesenteric border of both the small bowel and the colon. A single firing of the 60 mm blue load stapler was utilized. We had an adequate opening between the small bowel and colon at that point. The defect was closed transversely using a running 3-0 absorbable V lock suture using a connel technique. Once the defect was closed I ran the closure site once again using a running imbricating seromuscular technique with the same stitch. The previously placed 3-0 GI silk sutures acted as stay sutures proximally and distally. The suprapubic 12 mm trocar incision was then lengthened using the scalpel and the saphenous tissues and fascia were divided using electrocautery. The small Gm was placed within the abdominal cavity. Through the Gm wound protector the specimen was retrieved without difficulty. The fascia was closed using a running 0 Vicryl suture. The 12 mm trocar site fascia was closed using a [id number] 0 Vicryl suture. The subcutaneous tissues were irrigated with saline. The subcutaneous tissues were closed using 3-0 Vicryl sutures. The skin at all locations were closed using 4-0 Monocryl sutures. Dermabond was then utilized. Sterile dressings were applied. DISPOSITION: Stable to recovery room
[2020-06-07] MEDS: D5-0.45% NACL WITH KCL 20MEQ/L 1,000 ML IV SCH (22:19)
[2020-06-07] MEDS: FAMOTIDINE 20 MG/2 ML VIAL IV SCH (22:21)
[2020-06-07] MEDS: HEPARIN SODIUM,PORCINE 5,000 UNIT/ML 1 ML VIAL SQ SCH (22:32)
[2020-06-08] MEDS: D5-0.45% NACL WITH KCL 20MEQ/L 1,000 ML IV SCH ×3 (06:00→19:51)
[2020-06-08] MEDS: LACTATED RINGERS 1,000 ML IV SCH (06:01)
[2020-06-08 06:25] LABS: Basophils % (A) 0 %; Eosinophils % (A) 0 %; HCT 41.5 % (39.0-53.0); Lymphocytes # (A) 2.8 k/uL (1.0-4.8); Lymphocytes % (A) 25 %; MCH 30.1 pg (25.0-35.0); MCHC 33.6 g/dL (31.0-37.0); MCV 89.7 fL (80.0-100.0); Mean Platelet Volume 7.7; Monocytes # (A) 0.8 k/uL (0-1.0); Monocytes % (A) 7 %; Neutrophils # (A) 7.7 k/uL (1.3-7.7); Neutrophils % (A) 67 %; Platelet Count 174 k/uL (150-450); RBC 4.63 m/uL (4.30-5.90); RDW 14.2 % (11.5-15.5); WBC 11.6 k/uL (3.8-10.6)
[2020-06-08] MEDS: ALVIMOPAN 12 MG CAPSULE PO SCH ×2 (08:38→19:51)
[2020-06-08] MEDS: HEPARIN SODIUM,PORCINE 5,000 UNIT/ML 1 ML VIAL SQ SCH ×3 (08:38→19:51)
[2020-06-08] MEDS: FAMOTIDINE 20 MG/2 ML VIAL IV SCH ×2 (08:38→19:51)
[2020-06-08 10:15] LABS: African American GFR (CKD) 68.6 (60.0-200.0); Anion Gap 8.9 mmol/L (4.00-12.00); BUN/Creat Ratio 10.83 Ratio (12.00-20.00); Calcium 9.2 mg/dL (8.7-10.3); Carbon Dioxide 25.1 mmol/L (21.6-31.8); Non-African American GFR(CKD) 59.2 (60.0-200.0); Potassium 4.7 mmol/L (3.5-5.5)
--- NOTE | 2020-06-08 10:49 | P.PN ---
<Nitza Tan - Last Filed: 06/08/20 10:44> Subjective Progress Note Date: 06/08/20 CHIEF COMPLAINT: Right colon mass HISTORY OF PRESENT ILLNESS: Patient is status post laparoscopic da Bess assisted right colectomy with intracorporeal anastomosis, and laparoscopic lysis of adhesions for right sided colon mass and intra-abdominal adhesions. Postop day #1. Patient reports that his pain is controlled. He did have some nausea earlier that has now resolved. He denies any flatus or BM. Afebrile. WBC 11.6 currently on a clear liquid diet. Patient was having pain at Galeano catheter site. Galeano catheter was removed. Nursing staff checking postvoid residuals. PHYSICAL EXAM: VITAL SIGNS: Reviewed. GENERAL: Well-developed in no acute distress. HEENT: No sclera icterus. Extraocular movements grossly intact. Moist buccal mucosa. Head is atraumatic, normocephalic. ABDOMEN: Soft. Mildly distended. Incision sites clean dry and intact NEUROLOGIC: Alert and oriented. Cranial nerves II through XII grossly intact. ASSESSMENT: 1. Right colon mass and intra-abdominal adhesions status post laparoscopic da Bess assisted right colectomy with intracorporeal anastomosis, and laparoscopic lysis of adhesions PLAN: -Continue clear liquid diet -Continue pain medication as needed -Continue antiemetics as needed -Encouraged patient ambulate and to use incentive spirometer -GI prophylaxis Pepcid and DVT prophylaxis subcu heparin Physician Geospatial Program Management Officer note has been reviewed by physician. Signing provider agrees with the documented findings, assessment, and plan of care. Objective - Vital Signs Vital signs: Vital Signs Temp 98.7 F 06/08/20 06:31 Pulse 92 06/08/20 06:31 Resp 17 06/08/20 06:31 BP 128/67 06/08/20 06:31 Pulse Ox 92 L 06/08/20 06:31 Intake & Output 06/07/20 06/08/20 06/08/20 18:59 06:59 18:59 Intake Total 2150 Output Total 100 1700 Balance 2049 -1699 Weight 105.6 kg Intake: IV 0 Output: Urine 1700 Estimated Blood Loss 100 Other: Voiding Method Indwelling Catheter - Labs CBC & Chem 7: 06/08/20 06:07 06/08/20 06:07 Labs: Abnormal Lab Results - Last 24 Hours (Table) 06/08/20 06/08/20 Range/Units 06:07 06:07 WBC 11.6 H (3.8-10.6) k/uL Est GFR (CKD-EPI)NonAf 59.2 L (60.0-200.0) BUN/Creatinine Ratio 10.83 L (12.00-20.00) Ratio Glucose 190 H (70-110) mg/dL <Saleem Hermanony - Last Filed: 06/08/20 17:50> Subjective As above. Patient doing well. He is passing flatus. Will advance diet. Will modified analgesics. Recheck labs tomorrow. Ambulate. Objective - Vital Signs Vital signs: Vital Signs Temp 98.8 F 06/08/20 14:56 Pulse 80 06/08/20 14:56 Resp 18 06/08/20 14:56 BP 123/68 06/08/20 14:56 Pulse Ox 95 06/08/20 14:56 Intake & Output 06/07/20 06/08/20 06/08/20 18:59 06:59 18:59 Intake Total 2150 Output Total 100 1700 Balance 2050 -1700 Weight 105.6 kg Intake: IV 2150 Output: Urine 1700 Estimated Blood Loss 100 Other: Voiding Method Indwelling Catheter - Labs CBC & Chem 7: 06/08/20 06:07 06/08/20 06:07 Labs: Abnormal Lab Results - Last 24 Hours (Table) 06/08/20 06/08/20 Range/Units 06:07 06:07 WBC 11.6 H (3.8-10.6) k/uL Est GFR (CKD-EPI)NonAf 59.2 L (60.0-200.0) BUN/Creatinine Ratio 10.83 L (12.00-20.00) Ratio Glucose 190 H (70-110) mg/dL
--- NOTE | 2020-06-08 13:10 | P.CNPUL ---
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 Recent PET scan was done, and it showed hypermetabolic uptake in the cecum. Although the patient had a relatively unremarkable colonoscopy about 5 years ago, I did recommend referral to gastroenterology. Patient was seen by Dr. Boyer,, and he underwent colonoscopy and a cecal mass was discovered. The biopsies were nondiagnostic. However considering the size of the mass, patient was referred to Dr. cevallos, and the patient underwent right colectomy/robotic approach, and he had lysis of adhesions. Postoperatively, patient was admitted to the regular medical floor, and I was asked to see him on consultation. Final pathology on the mass is pending. Patient seems to be doing great, relatively asymptomatic. Denies any cough no wheezing no shortness of breath. Denies any nausea vomiting abdominal pain melena or hematemesis. Review of Systems Constitutional: Negative HEENT: Negative. Cardiac: Negative. Pulmonary: Negative. GI: Negative. Genitourinary: Negative. Musculoskeletal: Negative. Skin: Negative. Hematologic: Negative. Endocrine: Negative. Psychiatric: Negative. Neurologic: Past Medical History Past Medical History: Cancer, Hypertension, Sleep Apnea/CPAP/BIPAP Additional Past Medical History / Comment(s): NON HODGKIN'S LYMPHOMA- STATES HX OF RADIATION [place] (2017)., CURRENT CHEMO TREATMENT (LAST DOSE APR 2020)., USES C- PAP MACHINE. , HX COLON POLYPS., MASS @ ILEOCECAL VALVE. History of Any Multi-Drug Resistant Organisms: None Reported Additional Past Surgical History / Comment(s): vasectomy, rt groin lump CORE BIOPSY, COLONOSCOPY Past Anesthesia/Blood Transfusion Reactions: Previous Problems w/ Anesthesia Additional Past Anesthesia/Blood Transfusion Reaction / Comment(s): STATES HE FELT SORE ALL OVER FOR DAYS. Past Psychological History: No Psychological Hx Reported Additional Psychological History / Comment(s): . Smoking Status: Never smoker Past Alcohol Use History: Occasional Past Drug Use History: None Reported - Past Family History Mother Family Medical History: Cancer Brother(s) Family Medical History: Cancer Additional Family Medical History / Comment(s): BROTHER #1-SKIN CANCER. BROTHER #2-TESTICULAR CANCER Medications and Allergies Home Medications Medication Instructions Recorded Confirmed Type Losartan Potassium [Cozaar] 50 mg PO DAILY 11/26/17 06/07/20 History Aspirin [Adult Low Dose Aspirin EC] 81 mg PO DAILY 06/03/20 06/03/20 History Multivit-Min/Folic/Vit K/Lycop 1 each PO DAILY 06/03/20 06/03/20 History [Men's Multivitamin Tablet] Super Beta Prostate 1 tab PO DAILY 06/03/20 06/03/20 History Allergies Allergy/AdvReac Type Severity Reaction Status Date / Time No Known Allergies Allergy Verified 06/07/20 11:49 Physical Exam Vitals: Vital Signs Temp Pulse Resp BP Pulse Ox 06/08/20 06:31 98.7 F 92 17 128/67 92 L 06/08/20 00:55 98.3 F 99 15 125/71 94 L 06/07/20 20:50 98.5 F 98 15 134/70 95 06/07/20 20:30 87 17 128/74 96 06/07/20 20:15 98.8 F 87 19 133/77 95 06/07/20 20:00 91 16 128/74 93 L 06/07/20 19:36 93 16 137/75 95 06/07/20 19:20 16 06/07/20 19:00 88 16 131/76 96 06/07/20 18:30 85 16 131/70 95 06/07/20 18:15 82 16 131/70 97 06/07/20 18:00 75 16 134/72 97 06/07/20 17:46 73 16 147/79 99 06/07/20 17:31 74 16 155/71 99 06/07/20 17:17 82 16 155/89 99 06/07/20 17:08 98.0 F 93 14 170/91 96 Intake and Output 06/07/20 06/08/20 06/08/20 22:59 06:59 14:59 Intake Total 1000 Output Total 100 1700 Balance 900 -1700 Intake: IV 1000 Output: Urine 1700 Estimated Blood Loss 100 Other: Voiding Method Indwelling Catheter Physical Exam: Revealed 74-year-old white male, in no distress. On room air. Head: Atraumatic, normocephalic. HEENT:[Neck is supple.] [No neck masses.] [No thyromegaly.] [No JVD.] Chest: [Clear throughout, no crackles, no rhonchi, no wheezes.] Cardiac Exam: [Normal S1 and S2, no S3 gallop, no murmur.] Abdomen: Postsurgical, [Soft, nontender, no megaly, no rebound, no guarding, normal bowel sounds.] Extremities: [No clubbing, no edema, no cyanosis.] Good pulses bilaterally. Neurological Exam: [No focal neurologic deficit.] Alert and oriented 3. Skin: No rashes. Psychiatric: Normal mood affect and normal mental status examination. Results - Laboratory Findings CBC and BMP: 06/08/20 06:07 06/08/20 06:07 Abnormal lab findings: Abnormal Labs 06/08/20 06/08/20 06:07 06:07 WBC 11.6 H Est GFR (CKD-EPI)NonAf 59.2 L BUN/Creatinine Ratio 10.83 L Glucose 190 H Assessment and Plan Assessment: Impression: Status post right colectomy and lysis of adhesions robotically, with a relatively uneventful postoperative course. Right colon/cecal mass, pathology is still pending. History of low-grade B-cell lymphoma Benign essential hypertension Benign prostatic hyperplasia Hypercholesterolemia Primary erectile dysfunction History of restless leg syndrome History of obstructive sleep apnea syndrome. Recommendation: Continue present postoperative care. Continue incentive spirometer. Continue GI and DVT prophylaxis. Ambulate with assistance. Patient is already ambulating on his own in the room. Awaiting the final pathology from that cecal mass. Resume home meds. We'll continue to follow. Possible discharge planning in the next 2 days Time with Patient: Greater than 30
[2020-06-08] MEDS ORDERED: ACETAMINOPHEN TAB 325 MG TAB PO PRN (17:49)
[2020-06-08] MEDS ORDERED: IBUPROFEN 400 MG TAB PO PRN (17:49)
[2020-06-08] MEDS ORDERED: traMADol 50 MG TAB PO PRN (17:49)
[2020-06-09] MEDS: LACTATED RINGERS 1,000 ML IV SCH (03:49)
[2020-06-09] MEDS: D5-0.45% NACL WITH KCL 20MEQ/L 1,000 ML IV SCH (03:54)
[2020-06-09 05:34] LABS: Basophils % (A) 0 %; Eosinophils # (A) 0.1 k/uL (0-0.7); Eosinophils % (A) 1 %; HCT 41.3 % (39.0-53.0); HGB 13.6 gm/dL (13.0-17.5); Lymphocytes % (A) 35 %; MCH 29.5 pg (25.0-35.0); MCV 89.4 fL (80.0-100.0); Monocytes # (A) 0.6 k/uL (0-1.0); Monocytes % (A) 7 %; Neutrophils # (A) 4.8 k/uL (1.3-7.7); Neutrophils % (A) 55 %; Platelet Count 152 k/uL (150-450); RBC 4.61 m/uL (4.30-5.90); RDW 14.3 % (11.5-15.5); WBC 8.7 k/uL (3.8-10.6)
[2020-06-09] MEDS: HEPARIN SODIUM,PORCINE 5,000 UNIT/ML 1 ML VIAL SQ SCH (08:41)
[2020-06-09] MEDS: FAMOTIDINE 20 MG/2 ML VIAL IV SCH (08:41)
[2020-06-09] MEDS: ALVIMOPAN 12 MG CAPSULE PO SCH (08:41)
[2020-06-09 09:39] LABS: African American GFR (CKD) 76.2 (60.0-200.0); Anion Gap 5.8 mmol/L (4.00-12.00); BUN/Creat Ratio 10.91 Ratio (12.00-20.00); Calcium 8.6 mg/dL (8.7-10.3); Carbon Dioxide 28.2 mmol/L (21.6-31.8); Non-African American GFR(CKD) 65.8 (60.0-200.0); Potassium 3.9 mmol/L (3.5-5.5)
[2020-06-09 10:13] VITALS: BP 157/82; PULSE 85; RESP 20; TEMP 97.5
--- NOTE | 2020-06-09 11:09 | P.PN ---
<Nitza Tan - Last Filed: 06/09/20 11:07> Subjective Progress Note Date: 06/09/20 CHIEF COMPLAINT: Right colon mass HISTORY OF PRESENT ILLNESS: Patient is status post laparoscopic da Bess assisted right colectomy with intracorporeal anastomosis, and laparoscopic lysis of adhesions for right sided colon mass and intra-abdominal adhesions. Postop day #2. Patient reports that he is feeling well. He reporting minimal abdominal pain and has not required pain medication. He denies any nausea or vomiting. He is tolerating a low fiber diet. He reports having a bowel movement and passing gas. Patient denies any issues with urinating. Afebrile WBC 8.7 PHYSICAL EXAM: VITAL SIGNS: Reviewed. GENERAL: Well-developed in no acute distress. HEENT: No sclera icterus. Extraocular movements grossly intact. Moist buccal mucosa. Head is atraumatic, normocephalic. ABDOMEN: Soft. Mildly distended. Incision sites clean dry and intact NEUROLOGIC: Alert and oriented. Cranial nerves II through XII grossly intact. ASSESSMENT: 1. Right colon mass and intra-abdominal adhesions status post laparoscopic da Bess assisted right colectomy with intracorporeal anastomosis, and laparoscopic lysis of adhesions PLAN: -Continue dysphagia low fiber diet -Continue pain medication as needed -Continue antiemetics as needed -Encouraged patient ambulate and to use incentive spirometer -GI prophylaxis Pepcid and DVT prophylaxis subcu heparin Physician Electronic Funds Transfer Coordinator note has been reviewed by physician. Signing provider agrees with the documented findings, assessment, and plan of care. Objective - Vital Signs Vital signs: Vital Signs Temp 97.5 F L 06/09/20 08:00 Pulse 85 06/09/20 08:00 Resp 20 06/09/20 08:00 BP 157/82 06/09/20 08:00 Pulse Ox 97 06/09/20 08:00 Intake & Output 06/08/20 06/09/20 06/09/20 18:59 06:59 18:59 Intake Total 125 Balance 125 Intake: Oral 125 Other: # Voids 2 # Bowel Movements 1 - Labs CBC & Chem 7: 06/09/20 05:21 06/09/20 05:21 Labs: Abnormal Lab Results - Last 24 Hours (Table) 06/09/20 Range/Units 05:21 BUN/Creatinine Ratio 10.91 L (12.00-20.00) Ratio Glucose 131 H (70-110) mg/dL Calcium 8.6 L (8.7-10.3) mg/dL <Jason Herman - Last Filed: 06/09/20 20:07> Objective - Vital Signs Vital signs: Vital Signs Temp 97.5 F L 06/09/20 08:00 Pulse 85 06/09/20 08:00 Resp 20 06/09/20 08:00 BP 157/82 06/09/20 08:00 Pulse Ox 97 06/09/20 08:00 Intake & Output 06/09/20 06/09/20 06/10/20 06:59 18:59 06:59 Intake Total 125 Balance 125 Intake: Oral 125 Other: # Voids 2 # Bowel Movements 1 - Labs CBC & Chem 7: 06/09/20 05:21 06/09/20 05:21 Labs: Abnormal Lab Results - Last 24 Hours (Table) 06/09/20 Range/Units 05:21 BUN/Creatinine Ratio 10.91 L (12.00-20.00) Ratio Glucose 131 H (70-110) mg/dL Calcium 8.6 L (8.7-10.3) mg/dL
--- NOTE | 2020-06-09 13:39 | P.DS ---
<Nitza Tan - Last Filed: 06/09/20 13:34> Providers Expected date of discharge: 06/09/20 Hospital Course: Discharge diagnosis 1. Right colon mass and intra-abdominal adhesions status post laparoscopic da Bess assisted right colectomy with intracorporeal anastomosis, and laparoscopic lysis of adhesions Hospital course This is a 74-year-old male with a history of Hodgkin's lymphoma. Patient underwent PET scan on 04/02 which showed indeterminant activity in the cecum. He then underwent colonoscopy by GI service and was found to have a 5 cm nonobstructing mass at the ileocecal valve. 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 Clinically lesion appeared suspicious for villous adenoma. Patient is status post laparoscopic da Bess assisted right colectomy with intracorporeal anastomosis, and laparoscopic lysis of adhesions for right colon mass and intra-abdominal adhesions. Patient has tolerated surgery well. He is tolerating diet. He denies any abdominal pain. Denies any nausea or vomiting. Afebrile. He is up and ambulating. He is stable for discharge. Please refer to chart for any further details. Physician Atomic Process Engineer note has been reviewed by physician. Signing provider agrees with the documented findings, assessment, and plan of care. Patient Condition at Discharge: Stable Plan - Discharge Summary Discharge Rx Participant: No New Discharge Prescriptions: Continue Losartan Potassium [Cozaar] 50 mg PO DAILY Super Beta Prostate 1 tab PO DAILY Multivit-Min/Folic/Vit K/Lycop [Men's Multivitamin Tablet] 1 each PO DAILY Discontinued Aspirin [Adult Low Dose Aspirin EC] 81 mg PO DAILY Discharge Medication List Losartan Potassium [Cozaar] 50 mg PO DAILY 11/26/17 [History] Multivit-Min/Folic/Vit K/Lycop [Men's Multivitamin Tablet] 1 each PO DAILY 06/03/20 [History] Super Beta Prostate 1 tab PO DAILY 06/03/20 [History] Follow up Appointment(s)/Referral(s): Jason Herman MD [Medical Doctor] - 06/16/20 3:30 pm Patient Instructions/Handouts: Colectomy (GEN) Activity/Diet/Wound Care/Special Instructions: No lifting over 10 pounds You may shower. No soaking or tub baths for 2 weeks Very light activity until you are reevaluated at your follow up appointment with your surgeon Diet: Low fiber Do not take Aspirin until seen by Dr. Herman at follow up appointment Discharge Disposition: HOME SELF-CARE <Jason Herman - Last Filed: 06/09/20 20:09> Providers Date of admission: 06/07/20 11:15 Attending physician: Jason Herman Consults: 06/07/20 17:06 Consult Physician Routine Consulting Provider: Tash Reed Consult Reason/Comments: Medical management Do you want consulting provider notified?: Yes Primary care physician: [facility] Course: Patient doing well today. No pain at this time. Tolerating diet. He would like to go home. We'll discharge. Follow-up one week.
--- NOTE | 2020-06-09 13:52 | P.PN ---
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 Recent PET scan was done, and it showed hypermetabolic uptake in the cecum. Although the patient had a relatively unremarkable colonoscopy about 5 years ago, I did recommend referral to gastroenterology. Patient was seen by Dr. Boyer,, and he underwent colonoscopy and a cecal mass was discovered. The biopsies were nondiagnostic. However considering the size of the mass, patient was referred to Dr. cevallos, and the patient underwent right colectomy/robotic approach, and he had lysis of adhesions. Postoperatively, patient was admitted to the regular medical floor, and I was asked to see him on consultation. Final pathology on the mass is pending. Patient seems to be doing great, relatively asymptomatic. Denies any cough no wheezing no shortness of breath. Denies any nausea vomiting abdominal pain melena or hematemesis. Reevaluated today on 06/09/20, patient is being discharged home today. He is doing fine, relatively asymptomatic, no nausea no vomiting no abdominal pain. CBC and basic metabolic profile is normal. Pathology on his colonic mass is still pending. Objective - Vital Signs Vital signs: Vital Signs Temp 97.5 F L 06/09/20 08:00 Pulse 85 06/09/20 08:00 Resp 20 06/09/20 08:00 BP 157/82 06/09/20 08:00 Pulse Ox 97 06/09/20 08:00 Intake & Output 06/08/20 06/09/20 06/09/20 18:59 06:59 18:59 Intake Total 125 Balance 125 Intake: Oral 125 Other: # Voids 2 # Bowel Movements 1 - Exam Physical Exam: Revealed 74-year-old white male, in no distress. On room air. Head: Atraumatic, normocephalic. HEENT:[Neck is supple.] [No neck masses.] [No thyromegaly.] [No JVD.] Chest: [Clear throughout, no crackles, no rhonchi, no wheezes.] Cardiac Exam: [Normal S1 and S2, no S3 gallop, no murmur.] Abdomen: Postsurgical, [Soft, nontender, no megaly, no rebound, no guarding, normal bowel sounds.] Extremities: [No clubbing, no edema, no cyanosis.] Good pulses bilaterally. Neurological Exam: [No focal neurologic deficit.] Alert and oriented 3. Skin: No rashes. Psychiatric: Normal mood affect and normal mental status examination. - Labs CBC & Chem 7: 06/09/20 05:21 06/09/20 05:21 Labs: Abnormal Lab Results - Last 24 Hours (Table) 06/09/20 Range/Units 05:21 BUN/Creatinine Ratio 10.91 L (12.00-20.00) Ratio Glucose 131 H (70-110) mg/dL Calcium 8.6 L (8.7-10.3) mg/dL Assessment and Plan Assessment: Impression: Status post right colectomy and lysis of adhesions robotically, with a relatively uneventful postoperative course. Right colon/cecal mass, pathology is still pending. History of low-grade B-cell lymphoma Benign essential hypertension Benign prostatic hyperplasia Hypercholesterolemia Primary erectile dysfunction History of restless leg syndrome History of obstructive sleep apnea syndrome. Recommendation: Agree with discharge planning today, follow up on outpatient basis. Time with Patient: Less than 30
== END 2020-06-09 14:38 | disposition home or self-care (01) | DRG 330 ==
LOC: 2ORMAIN 11:15 → 5NMEDONC 19:31
PROVIDERS: ADMIT Surgery; ATTEND Surgery
PROC: 8E0W4CZ Robotic Assisted Procedure of Trunk Region, Percutaneous Endoscopic Approach (ICD-10-PCS; principal; 2020-06-07 13:05)
PROC: 0DTF4ZZ Resection of Right Large Intestine, Percutaneous Endoscopic Approach (ICD-10-PCS; principal; 2020-06-07 13:05)
DX: D12.6 Benign neoplasm of colon, unspecified (principal); C85.10 Unspecified B-cell lymphoma, unspecified site; E78.00 Pure hypercholesterolemia, unspecified; G25.81 Restless legs syndrome; I10 Essential (primary) hypertension; N40.0 Benign prostatic hyperplasia without lower urinary tract symptoms; N52.9 Male erectile dysfunction, unspecified; G47.33 Obstructive sleep apnea (adult) (pediatric); Z79.82 Long term (current) use of aspirin; Z79.899 Other long term (current) drug therapy; Z87.19 Personal history of other diseases of the digestive system; Z92.3 Personal history of irradiation; Z98.52 Vasectomy status; Z98.890 Other specified postprocedural states; Z80.43 Family history of malignant neoplasm of testis; Z80.8 Family history of malignant neoplasm of other organs or systems
CPT/HCPCS: 80048; 84132; 85025; 86850; 86900; 86901; 88309

== ENCOUNTER → 2021-03-25 | Outpatient (CLI) | payer MEDICARE, BC ==
--- NOTE | 2021-03-25 13:16 | PE ---
Nuclear medicine PET CT HISTORY: Lymphoma groin and neck, CAD 2.01, subsequent Patient received 11.7 mCi F-18 FDG intravenously and delayed scanning was performed from the skull ba se to the mid thighs. A localization and attenuation correction CT scan was performed. Correlation to prior PET/CT dated 03/25/2021 Chest and neck: Left submandibular gland is likely atrophic, right submandibular gland activity is li evon physiologic. No supraclavicular or cervical adenopathy. No mediastinal, axillary, or hilar adeno emani. Coronary artery calcifications are present. No evident airspace disease. Nodular densities wit hin the lungs are again noted and stable, there is a calcified nodule in the right upper lobe as on p rior. ABDOMEN: The liver shows no abnormal uptake. Dependent high attenuation within the gallbladder is con sistent with stone. There is no adrenal mass. The spleen and pancreas are within normal limits, kidne ys show no hydronephrosis. Focus of uptake is noted at the level of the proximal transverse colon, th ere is some local suture material does level, axial image #177 which is indeterminate. Diverticular c hanges associated with the sigmoid colon predominantly. No pelvic adenopathy or suspicious uptake. Osseous structures show no suspicious uptake. IMPRESSION: Indeterminate uptake near anastomosis in the proximal transverse colon, findings could be physiologic. No evident additional abnormal uptake.
== END | disposition home or self-care (01) ==
LOC: RADPETMAIN 08:05
PROVIDERS: ATTEND Internal Medicine Hematology & Oncology
DX: C82.01 Follicular lymphoma grade I, lymph nodes of head, face, and neck (principal); I25.10 Atherosclerotic heart disease of native coronary artery without angina pectoris
CPT/HCPCS: 78815; A9552

== ENCOUNTER 2021-05-05 09:41 | Emergency (ER) | payer MEDICARE, BC ==
[~2021-05-05 09:41] MED LIST changes: -ACETAMINOPHEN TAB 500 MG TAB PO PRN; -ALVIMOPAN 12 MG CAPSULE PO PRN; -DEXAMETHASONE SOD PHOSPHATE 4 MG/ML 1 ML VIAL IV ONE; -HEPARIN SODIUM,PORCINE 5,000 UNIT/ML 1 ML VIAL SQ PRN; -HYDROmorphone 0.5 MG/0.5 ML SYRINGE IVP PRN; -ONDANSETRON 4 MG/2 ML VIAL IVP ONE; +SODIUM CHLORIDE 0.9% 500 ML 500 ML in EMPTY BAG 1 BAG IV PRN; -metroNIDAZOLE-NS PMX 500 MG in SALINE 1 100ML.BAG IVPB PRN
[2021-05-05 09:59] VITALS: TEMP 100.8
--- NOTE | 2021-05-05 10:02 | ED ---
General Adult HPI - General Chief complaint: Upper Respiratory Infection Stated complaint: Covid+, here for antibodies Time Seen by Provider: 05/05/21 09:44 Source: patient, family, RN notes reviewed Mode of arrival: ambulatory Limitations: no limitations - History of Present Illness Initial comments: 75-year-old female presents emergency Department with chief complaint of COVID- 19. Patient states he just tested positive. Patient did have prior vaccination. Patient was sent here for antibodies. he has mild cough, congestion, fevers chills body aches. No chest pain or shortness breath - Related Data Home Medications Medication Instructions Recorded Confirmed Losartan Potassium [Cozaar] 50 mg PO DAILY 11/26/17 06/07/20 Multivit-Min/Folic/Vit K/Lycop 1 each PO DAILY 06/03/20 06/03/20 [Men's Multivitamin Tablet] Super Beta Prostate 1 tab PO DAILY 06/03/20 06/03/20 Allergies Allergy/AdvReac Type Severity Reaction Status Date / Time No Known Allergies Allergy Verified 05/05/21 09:58 Review of Systems ROS Statement: Those systems with pertinent positive or pertinent negative responses have been documented in the HPI. ROS Other: All systems not noted in ROS Statement are negative. Past Medical History Past Medical History: Cancer, Hypertension Additional Past Medical History / Comment(s): NEW DX NON HODGKIN'S LYMPHOMA, C HEMO LAST MARCH 2020 History of Any Multi-Drug Resistant Organisms: None Reported Additional Past Surgical History / Comment(s): vasectomy, rt groin lump CORE BIOPSY, COLONOSCOPY Past Anesthesia/Blood Transfusion Reactions: No Reported Reaction Additional Past Anesthesia/Blood Transfusion Reaction / Comment(s): STATES HE FELT SORE ALL OVER FOR DAYS. Past Psychological History: Anxiety Smoking Status: Never smoker Past Alcohol Use History: Occasional Past Drug Use History: None Reported - Past Family History Mother Family Medical History: Cancer Brother(s) Family Medical History: Cancer Additional Family Medical History / Comment(s): BROTHER #1-SKIN CANCER. BROTHER #2-TESTICULAR CANCER General Exam Limitations: no limitations General appearance: alert, in no apparent distress Head exam: Present: atraumatic, normocephalic, normal inspection Eye exam: Present: normal appearance, PERRL, EOMI. Absent: scleral icterus, conjunctival injection, periorbital swelling ENT exam: Present: normal exam, mucous membranes moist Neck exam: Present: normal inspection. Absent: tenderness, meningismus, lymphadenopathy Respiratory exam: Present: normal lung sounds bilaterally. Absent: respiratory distress, wheezes, rales, rhonchi, stridor Cardiovascular Exam: Present: normal rhythm, tachycardia, normal heart sounds. Absent: systolic murmur, diastolic murmur, rubs, gallop, clicks GI/Abdominal exam: Present: soft, normal bowel sounds. Absent: distended, tenderness, guarding, rebound, rigid Course Vital Signs 05/05/21 09:54 Temperature 100.8 F H Pulse Rate 104 H Respiratory 18 Rate Blood Pressure 152/78 O2 Sat by Pulse 96 Oximetry Medical Decision Making - Medical Decision Making Patient will receive monoclonal antibodies, will be discharged stable condition. Disposition Clinical Impression: COVID-19 Disposition: HOME SELF-CARE Condition: Stable Is patient prescribed a controlled substance at d/c from ED?: No Time of Disposition: 10:02
[2021-05-05] MEDS ORDERED: ACETAMINOPHEN TAB 500 MG TAB PO STA (10:06)
[2021-05-05] MEDS ORDERED: BAMLANIVIMAB (EUA) 700 MG, ETESEVIMAB (EUA) 1,400 MG in SODIUM CHLORIDE 0.9% 50 ML IVPB ONE (10:30)
[2021-05-05] MEDS ORDERED: SODIUM CHLORIDE 0.9% 50 ML IVPB ONE (10:30)
[2021-05-05 11:23] VITALS: BP 141/72; PULSE 83; RESP 16
== END 2021-05-05 12:30 | disposition home or self-care (01) ==
LOC: EC 09:41 → PROCWHC3 09:41 → EDSTATUS 09:42 → PROCWHC3 12:30
DX: U07.1 COVID-19 (principal); I10 Essential (primary) hypertension; F41.9 Anxiety disorder, unspecified
CPT/HCPCS: 99283; 96360; J3490; M0243

== ENCOUNTER → 2021-12-16 | Outpatient (CLI) | payer MEDICARE, BC ==
--- NOTE | 2021-12-21 06:30 | PE ---
EXAMINATION TYPE: PET CT fusion skull to thigh DATE OF EXAM: 12/16/2021 COMPARISON: Prior PET/CT March 25, 2021 and older studies HISTORY: Lymphoma progress study. Originally diagnosed right groin November 2017. Patient completed chemo therapy December 06, 2021. TECHNIQUE: Following the intravenous administration of 9.4 mCi of F-18 FDG, whole body images are pe rformed from the skull base to the midthigh. Images are reviewed on the computer in the coronal, axi al, and sagittal planes. Reconstructed rotating images are created on independent workstation and re viewed on the computer. A localization and attenuation correction CT is performed in conjunction wi th the PET scan. Blood glucose level equals 106. SCAN: Subsequent Scan FINDINGS: Mean SUV mediastinum: 0.93 Mean SUV liver: 2.22 SKULL BASE AND NECK: No new areas of abnormal hypermetabolic uptake. CHEST, MEDIASTINUM, AND HILAR REGION: No new areas of abnormal hypermetabolic uptake. ABDOMEN AND PELVIS: Normal excretion. Mild nonspecific bowel uptake. No definitive new areas of abnor mal hypermetabolic uptake with particular attention to the left groin. OSSEOUS STRUCTURES: No definitive new areas of abnormal hypermetabolic uptake. OTHER CT: Atrophic or absent left submandibular gland redemonstrated. Calcification superior to this axial image 36 again seen. Nasal septal deviation again seen. Surgical clips right posterior cervical triangle redemonstrated. Stable hypodense 1.5 cm right thyroid nodule. Stable 8mm benign calcified n odule or granuloma right upper lobe axial image 90. Diverticular changes involving the sigmoid colon redemonstrated. Occasional scattered pelvic phleboli ths. IMPRESSION: No new hypermetabolic masses or lymph nodes to suggest active lymphoma recurrence.
== END | disposition home or self-care (01) ==
LOC: RADXRMAIN 10:17
PROVIDERS: ATTEND Internal Medicine Hematology & Oncology
DX: C82.00 Follicular lymphoma grade I, unspecified site (principal)
CPT/HCPCS: 78815; A9552

== ENCOUNTER → 2022-12-22 | Outpatient (CLI) | payer MEDICARE, BC ==
--- NOTE | 2022-12-24 14:45 | PE ---
EXAMINATION TYPE: PET CT fusion skull to thigh DATE OF EXAM: 12/22/2022 COMPARISON: CT chest abdomen pelvis 05/27/2019 Prior PET/CT: 12/16/2021 HISTORY: Lymphoma TECHNIQUE: Following the intravenous administration of 11.4 mCi of F-18 FDG, whole body images are p erformed from the skull base to the midthigh. Images are reviewed on the computer in the coronal, ax ial, and sagittal planes. Reconstructed rotating images are created on independent workstation and r eviewed on the computer. A localization and attenuation correction CT is performed in conjunction w ith the PET scan. DLP: 511.34 mGycm SCAN: Subsequent Blood glucose: 121 mg/dL Average Mediastinum SUV: 1.82 Average Liver SUV: 2.39 FINDINGS: NECK: No abnormal uptake THORAX: No abnormal uptake ABDOMEN: No abnormal uptake PELVIS: No abnormal uptake OSSEOUS STRUCTURES: No abnormal uptake LOCALIZATION CT: Absent left submandibular gland. Hypodensity within the enlarged right lobe right is again evident. No suspicious adenopathy identified. Minimal pericardial effusion may be present. Sc attered diverticuli within the colon are evident. COMPARISON: No significant interval change. IMPRESSION: 1. No suspicious uptake to suggest recurrent or metastatic lymphoma grade 2. Diverticulosis without acute diverticulitis. 3. Minimal pericardial effusion
== END | disposition home or self-care (01) ==
LOC: RADPETMAIN 10:10
PROVIDERS: ATTEND Internal Medicine Hematology & Oncology
DX: C82.00 Follicular lymphoma grade I, unspecified site (principal); I31.39 Other pericardial effusion (noninflammatory); K57.90 Diverticulosis of intestine, part unspecified, without perforation or abscess without bleeding
CPT/HCPCS: 78815; A9552

== ENCOUNTER → 2023-05-29 | Outpatient (CLI) | payer MEDICARE, BC ==
--- NOTE | 2023-05-29 16:40 | P.SLEEP ---
History of Present Illness H&P Date: 05/29/23 A 77-year-old male patient with known history of tolerate centimeters of water. His last evaluation with me was back into 2019 and the patient is coming in to establish his care. The patient is doing well for now. He has no specific complaints. Over the past 40 years, he has not had any major health related issues. He is known to have obstructive sleep apnea, non-Hodgkin's lymphoma, diabetes mellitus type 2, hyperlipidemia. He has been able to maintain himself on BiPAP therapy and his treatment has been effective. He goes to bed at around 8 PM and wakes up 5:45 AM in the morning. He is able to maintain the same schedule on weekends. No snoring while on the BiPAP. No major hypersomnia or sleepiness and he reports his sleep quality to be good as long as he continues to use his BiPAP machine. Unfortunately, his machine has exceeded its motor lifespan. The patient is coming in to update his device. I checked the compliance data on the machine. I noted that the patient has been utilizing the machine every night and his overall compliancy is at 100%. His leak is in order of 20 L/m. His tidal volume is 420 mL and the patient has a minute ventilation of 7.4 L/m and his AHI is down to 2.9 while on treatment. At the same time, the patient has gained around 7 pounds since his last evaluation approximately 4 years ago. Is currently using a [employer] all facemask medium size. No heart attack. No stroke. No congestion heart failure. No substance abuse. No alcoholism. Note that hypersomnia or sleepiness. Review of Systems A full review of system was done and the positive findings were mentioned above in history of present illness, otherwise negative. A 14 point review of system was done. Past Medical History Past Medical History: Cancer, Hypertension, Sleep Apnea/CPAP/BIPAP Additional Past Medical History / Comment(s): NEW DX NON HODGKIN'S LYMPHOMA, CHEMO LAST MARCH 2020 History of Any Multi-Drug Resistant Organisms: None Reported Additional Past Surgical History / Comment(s): vasectomy, rt groin lump CORE BIOPSY, COLONOSCOPY Past Anesthesia/Blood Transfusion Reactions: No Reported Reaction Additional Past Anesthesia/Blood Transfusion Reaction / Comment(s): STATES HE FELT SORE ALL OVER FOR DAYS. Past Psychological History: Anxiety Smoking Status: Never smoker Past Alcohol Use History: Occasional Past Drug Use History: None Reported - Past Family History Mother Family Medical History: Cancer Brother(s) Family Medical History: Cancer Additional Family Medical History / Comment(s): BROTHER #1-SKIN CANCER. BROTHER #2-TESTICULAR CANCER Medications and Allergies Home Medications Medication Instructions Recorded Confirmed Type Losartan Potassium [Cozaar] 50 mg PO DAILY 11/26/17 06/07/20 History Multivit-Min/Folic/Vit K/Lycop 1 each PO DAILY 06/03/20 06/03/20 History [Men's Multivitamin Tablet] Super Beta Prostate 1 tab PO DAILY 06/03/20 06/03/20 History Allergies Allergy/AdvReac Type Severity Reaction Status Date / Time No Known Allergies Allergy Verified 05/05/21 09:58 Physical Exam The blood pressure is 143/92, pulse is 12, respirations 18, temperature is 98.4, [place] score is at 5, BMI 32.6, the size of the neck is 18-3/4 of an inch. Pulse ox is 96% on room air oxygen. The patient appeared well nourished and normally developed. Vital signs as documented. Head exam is unremarkable. No scleral icterus or corneal arcus noted. Neck is without jugular venous distension, thyromegaly, or carotid bruits. The patient has a Mallampati class IV with a significant crowding of the posterior oropharynx. Carotid upstrokes are brisk bilaterally. Lungs are clear to auscultation and percussion. Cardiac exam reveals the PMI to be normally sized and situated. Rhythm is regular. First and second heart sounds normal. No murmurs, rubs or gallops. Abdominal exam reveals normal bowel sounds, no masses, no organomegaly and no aortic enlargement. Extremities are nonedematous and both femoral and pedal pulses are normal.Examination of the skin revealed no evidence of significant rashes, suspicious appearing nevi or other concerning lesions.Neurologically, the patient is awake and alert and the patient does not have any focal neurological deficit. Cranial nerves are essentially intact. Assessment and Plan Plan: Assessment Obstructive sleep apnea with an AHI of 54 successfully treated with a BiPAP at a pressure of 12/8 cm of water. The machine is currently malfunctioning and the motor life has exceeded it's lifespan. Adequate compliancy while being on BiPAP therapy without any major hypersomnia or sleepiness Chronic hypersomnia/sleepiness, recovered well on a BiPAP Obesity with a BMI of 32.6 History of non-Hodgkin's lymphoma Hyperlipidemia Hypertension Diabetes mellitus type 2 maintained on metformin Plan I am going to order this patient in view BiPAP unit. I'm going to keep him on the same pressures of 12/8 cm of water and he is going to be kept on the same mask interface which is a [employer] all facemask. Once he obtains his new BiPAP machine. The patient is going to see me in the office and 30-90 days to do another compliancy check. The patient has been very successfully treated in the past and the patient wants to maintain BiPAP therapy for the time being. No other issues for now. No other cardiovascular complications. His treatment has been successful. We'll continue to follow. Sleep Note - Sleep Note Sleep Note: Temperature: Pulse Rate: Respiratory Rate: Blood Pressure: SpO2: Height: Weight: BMI: Neck Circumference:
== END ==
LOC: 3 N SLEEP 14:42
PROVIDERS: ATTEND Internal Medicine Critical Care Medicine
DX: G47.33 Obstructive sleep apnea (adult) (pediatric) (principal); G47.10 Hypersomnia, unspecified; E11.9 Type 2 diabetes mellitus without complications; E66.9 Obesity, unspecified; E78.5 Hyperlipidemia, unspecified; I10 Essential (primary) hypertension; Z99.89 Dependence on other enabling machines and devices; Z68.32 Body mass index [BMI] 32.0-32.9, adult; Z85.72 Personal history of non-Hodgkin lymphomas; Z79.84 Long term (current) use of oral hypoglycemic drugs
CPT/HCPCS: 99211

== ENCOUNTER → 2023-05-29 | Outpatient (CLI) | payer MEDICARE, BC ==
[2023-05-29 11:48] LABS: African American GFR (CKD) 85 (>60 ml/min/1.73 sqM); Blood Urea Nitrogen 18 mg/dL (9-20); Non-African American GFR(CKD) 73 (>60 ml/min/1.73 sqM)
--- NOTE | 2023-05-29 15:17 | CT ---
EXAMINATION TYPE: CT soft tissue neck w con DATE OF EXAM: 05/29/2023 COMPARISON: 06/20/2019, PET CT 12/22/2022 HISTORY: 77-year-old male K12.2, swelling, pos abscess left side, hx of non-Hodgkin's lymphoma TECHNIQUE: Contiguous axial scanning of the soft tissues of the neck performed with IV Contrast, jamie ent injected with 100 mL of Isovue 300. Coronal/sagittal reconstructions performed. CT DLP: 641.8 mGycm Automated exposure control for dose reduction was used. FINDINGS: 1.8 cm right thyroid lobe nodule redemonstrated. Visualized intracranial structures, orbits and globes, and mastoid air cells appear clear. Scattered mild mucosal thickening ethmoid air cells and maxillary sinuses. Rightward nasal septal deviation. Nasal pharynx appears clear. Bilateral soft tissue prominence in the region of the palatine tonsils. punctate 3 mm calcification left side is unchanged. Epiglottis and prevertebral soft tissues are satisfactory. Glottic and subglottic structures as well as the tracheal column and visualized upper lungs are clear . Either atrophic or surgically absent left submandibular gland with a 9 mm calcification redemonstrate d. Right submandibular gland and bilateral parotid glands show no gross abnormal body. There is inflammatory fat stranding and edema centered along the parotid tail and left submandibular space with thickening of the overlying platysma muscle and slight asymmetric thickening of the left s ternocleidomastoid. The graft there is an enlarged 2.7 x 1.7 x 1.3 cm lymph node anterior to the ster nocleidomastoid and outwardly protruding the thickened platysma muscle. Soft tissue reticulation and edema, and inflammatory changes track down the anterior left side of the neck with corresponding thickening of the platysma muscle. No discrete abscess is identified. IMPRESSION: 1. 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 THERE IS INFLAMMATION WHICH EX TENDS FROM THE LEFT SUBMANDIBULAR SPACE, NEAR THE LEFT PAROTID TAIL, AND DOWN THE ANTERIOR left side of the neck with corresponding thickening of the platysma muscle and slight asymmetric thickening of the left sternocleidomastoid. Correlate for cellulitis and contiguous myositis. No discrete abscess f ormation. 2. A large lymph node measuring 2.7 x 1.7 x 1.3 cm here on the left side of the neck is probably reac tive. Follow-up after treatment to ensure involution and exclude any suspicious recurrent lymphadenop athy.
== END | disposition home or self-care (01) ==
LOC: RADCTMAIN 10:56
PROVIDERS: ATTEND Internal Medicine
DX: K12.2 Cellulitis and abscess of mouth (principal); R59.0 Localized enlarged lymph nodes
CPT/HCPCS: 82565; 84520; 70491; 36415; Q9967

== ENCOUNTER 2023-05-31 07:19 | Observation (INO) | payer MEDICARE, BC ==
[2023-05-31 07:58] LABS: Basophils % (A) 0 %; Eosinophils # (A) 0.2 k/uL (0-0.7); Eosinophils % (A) 2 %; HCT 47.6 % (39.0-53.0); Lymphocytes % (A) 29 %; MCH 30.1 pg (25.0-35.0); MCHC 33.5 g/dL (31.0-37.0); MCV 89.8 fL (80.0-100.0); Mean Platelet Volume 7.4; Monocytes # (A) 0.6 k/uL (0-1.0); Monocytes % (A) 6 %; Neutrophils # (A) 6.5 k/uL (1.3-7.7); Neutrophils % (A) 61 %; Platelet Count 174 k/uL (150-450); RDW 13.6 % (11.5-15.5); WBC 10.6 k/uL (3.8-10.6)
--- NOTE | 2023-05-31 08:00 | ED ---
Skin/Abscess/FB HPI - General Chief complaint: Skin/Abscess/Foreign Body Stated complaint: infection left side of face/neck Time Seen by Provider: 05/31/23 07:32 Source: patient, RN notes reviewed Mode of arrival: ambulatory Limitations: no limitations - History of Present Illness Initial comments: This is a 77-year-old male who presents to the emergency department for a left- sided facial infection. Patient states that a couple of days ago he started to get redness and swelling to the left side of his face and neck. He saw his primary care provider, and a CT scan of the neck was done and he was started on Augmentin. He has been taking the Augmentin for 2 days at this point. States that since starting the antibiotic and having the computed tomography scan, the swelling has progressed and is now starting to move underneath the chin. Denies any pain associated with this. He also denies any shortness of breath or difficulty speaking or swallowing. States that he called his primary care provider yesterday, who advised that if symptoms worsen to go to the emergency department this morning. - Related Data Home Medications Medication Instructions Recorded Confirmed Losartan Potassium [Cozaar] 50 mg PO DAILY 11/26/17 05/31/23 Amoxic-Pot Clav 875-125Mg 1 tab PO BID 05/31/23 05/31/23 [Augmentin 875-125] Aspirin EC [Ecotrin Low Dose] 81 mg PO DAILY 05/31/23 05/31/23 Co Q-10 100mg 100 mg PO DAILY 05/31/23 05/31/23 Ibuprofen [Motrin] 800 mg PO TID PRN 05/31/23 05/31/23 Rosuvastatin [Crestor] 10 mg PO HS 05/31/23 05/31/23 hydroCHLOROthiazide 12.5 mg PO DAILY 05/31/23 05/31/23 metFORMIN HCL [Glucophage] 500 mg PO HS 05/31/23 05/31/23 Allergies Allergy/AdvReac Type Severity Reaction Status Date / Time No Known Allergies Allergy Verified 05/31/23 11:45 Review of Systems ROS Statement: Those systems with pertinent positive or pertinent negative responses have been documented in the HPI. ROS Other: All systems not noted in ROS Statement are negative. Past Medical History Past Medical History: Cancer, Hypertension, Sleep Apnea/CPAP/BIPAP Additional Past Medical History / Comment(s): NEW DX NON HODGKIN'S LYMPHOMA, CHEMO LAST MARCH 2020 History of Any Multi-Drug Resistant Organisms: None Reported Additional Past Surgical History / Comment(s): vasectomy, rt groin lump CORE BIOPSY, COLONOSCOPY Past Anesthesia/Blood Transfusion Reactions: No Reported Reaction Additional Past Anesthesia/Blood Transfusion Reaction / Comment(s): STATES HE FELT SORE ALL OVER FOR DAYS. Past Psychological History: Anxiety Smoking Status: Never smoker Past Alcohol Use History: Occasional Past Drug Use History: None Reported - Past Family History Mother Family Medical History: Cancer Brother(s) Family Medical History: Cancer Additional Family Medical History / Comment(s): BROTHER #1-SKIN CANCER. BROTHER #2-TESTICULAR CANCER General Exam Limitations: no limitations General appearance: alert, in no apparent distress Head exam: Present: atraumatic, other (Swelling and fullness to the left side of the face extending into the neck and left jaw. No tenderness.) ENT exam: Present: other (No swelling of the tongue or tongue elevation. No swelling to the floor of the mouth.) Neck exam: Present: other (Left sided cervical lymphadenopathy and submental lymphadenopathy) Respiratory exam: Present: normal lung sounds bilaterally. Absent: respiratory distress, wheezes, rales, rhonchi, stridor Cardiovascular Exam: Present: regular rate, normal rhythm, normal heart sounds. Absent: systolic murmur, diastolic murmur, rubs, gallop, clicks Neurological exam: Present: alert, oriented X3, CN II-XII intact Psychiatric exam: Present: normal affect, normal mood Course Vital Signs 05/31/23 05/31/23 05/31/23 07:27 09:00 11:00 Temperature 98.6 F 98.1 F 98.5 F Pulse Rate 98 84 84 Respiratory 18 18 18 Rate Blood Pressure 137/86 129/73 114/72 O2 Sat by Pulse 96 96 96 Oximetry 05/31/23 12:49 Temperature 98.1 F Pulse Rate 92 Respiratory 16 Rate Blood Pressure 123/80 O2 Sat by Pulse 94 L Oximetry Medical Decision Making - Medical Decision Making This is a 77-year-old male who presents to the emergency department for left- sided facial swelling. Was pt. sent in by a medical professional or institution? @ -No Did you speak to anyone other than the patient for history? @ -No Did you review nursing and triage notes? @ -Yes, and I agree, it is accurate with regards to the patient's symptoms. Were old charts reviewed? @ -Computed tomography scan of the soft tissue neck from 05/29/23 demonstrating inflammation extending from the left submandibular space, near the parotid tail, and down the anterior left side of the neck with corresponding thickening of the platysma muscle and slightly asymmetric thickening of the left sternocleidomastoid. Correlation for cellulitis and contiguous myositis was advised. No discrete abscess formation was identified. He was also found to have a large lymph node on the left side of the neck that is thought to be reactive. Differential Diagnosis? @ -Differential Facial Swelling: Ermias's angina, dental abscess, lymphadenopathy, sialoadenitis, parotitis, this is not meant to be an all-inclusive list. EKG interpreted by me (3pts min.)? @ -Not obtained X-rays interpreted by me (1pt min.)? @ -Not obtained CT interpreted by me (1pt min.)? @ -Computed tomography scan of the face and soft tissue neck obtained. My interpretation identifies soft tissue swelling to the left side of the neck without abscess formation. U/S interpreted by me (1pt. min.)? @ -Not obtained What testing was considered but not performed? (CT, X-rays, U/S, labs)? Why? @ -None What meds were considered but not given? Why? @ -None Did you discuss the management of the patient with other professionals? @ -Yes, Dr. Sam, who accepts the patient for admission. Did you reconcile home meds? @ -Yes Was smoking cessation discussed for >3mins.? @ -No Was critical care preformed (if so, how long)? @ -No Were there social determinants of health that impacted care today? How? (Homelessness, low income, unemployed, alcoholism, drug addiction, transportation, low edu. Level, literacy, decrease access to med. care, prison, rehab)? @ -No Was there de-escalation of care discussed even if they declined? (Discuss DNR or withdrawal of care, Hospice)? @ -No What co-morbidities impacted this encounter? (DM, HTN, Smoking, COPD, CAD, Cancer, CVA, Hep., AIDS, mental health diagnosis, sleep apnea, morbid obesity)? @ -Hx of non-Hodgkin's lymphoma Was patient admitted / discharged? @ -Admitted. Lab work obtained revealing elevated inflammatory markers, with a CRP of 6.6 and ESR of 24. We did repeat a computed tomography scan of the facial bones and soft tissue neck. This appeared to be unchanged, however the patient was concerned that this appeared to be progressing. He did however continue to remain asymptomatic, in that he was not experiencing any pain, respiratory difficulties, or difficulty speaking or eating. Case discussed with the patient's primary care provider, who advised admission with IV Unasyn and ENT consult. Patient admitted to medicine for further management. Blood cultures obtained as well. Undiagnosed new problem with uncertain prognosis? @ -None Drug Therapy requiring intensive monitoring for toxicity (Heparin, Nitro, Insulin, Cardizem)? @ -None Were any procedures done? @ -None Diagnosis/symptom? @ -Left sided face and neck cellulitis Acute, or Chronic, or Acute on Chronic? @ -Acute Uncomplicated (without systemic symptoms) or Complicated (systemic symptoms)? @ -Uncomplicated Side effects of treatment? @ -None Exacerbation, Progression, or Severe Exacerbation] @ -Not applicable Poses a threat to life or bodily function? @ -Yes This case was discussed in detail with the attending ED physician, Dr. Cunningham. Presentation, findings, and treatment plan discussed in detail as well. - Lab Data Result diagrams: 05/31/23 07:49 05/31/23 07:49 Lab Results 05/31/23 05/31/23 05/31/23 Range/Units 07:49 07:49 07:49 WBC 10.6 (3.8-10.6) k/uL RBC 5.30 (4.30-5.90) m/uL Hgb 16.0 (13.0-17.5) gm/dL Hct 47.6 (39.0-53.0) % MCV 89.8 (80.0-100.0) fL MCH 30.1 (25.0-35.0) pg MCHC 33.5 (31.0-37.0) g/dL RDW 13.6 (11.5-15.5) % Plt Count 174 (150-450) k/uL MPV 7.4 Neutrophils % 61 % Lymphocytes % 29 % Monocytes % 6 % Eosinophils % 2 % Basophils % 0 % Neutrophils # 6.5 (1.3-7.7) k/uL Lymphocytes # 3.0 (1.0-4.8) k/uL Monocytes # 0.6 (0-1.0) k/uL Eosinophils # 0.2 (0-0.7) k/uL Basophils # 0.0 (0-0.2) k/uL ESR 24 H (0-20) mm/Hr Sodium 137 (137-145) mmol/L Potassium 3.9 (3.5-5.1) mmol/L Chloride 99 (98-107) mmol/L Carbon Dioxide 27 (22-30) mmol/L Anion Gap 11 mmol/L BUN 20 (9-20) mg/dL Creatinine 1.07 (0.66-1.25) mg/dL Est GFR (CKD-EPI)AfAm 78 (>60 ml/min/1.73 sqM) Est GFR (CKD-EPI)NonAf 67 (>60 ml/min/1.73 sqM) Glucose 217 H (74-99) mg/dL Plasma Lactic Acid Alok 1.2 (0.7-2.0) mmol/L Calcium 9.9 (8.4-10.2) mg/dL Total Bilirubin 1.1 (0.2-1.3) mg/dL AST 19 (17-59) U/L ALT 25 (4-49) U/L Alkaline Phosphatase 78 (38-126) U/L C-Reactive Protein 6.6 H (<1.0) mg/dL Total Protein 6.6 (6.3-8.2) g/dL Albumin 4.1 (3.5-5.0) g/dL Amylase 65 (30-110) U/L Lipase 144 (23-300) U/L - Radiology Data Radiology results: report reviewed, image reviewed Disposition Clinical Impression: Facial cellulitis, Lymphadenopathy, Cellulitis, neck Disposition: ADMITTED IP TO THIS HOSP
[2023-05-31 08:26] LABS: ALT 25 U/L (4-49); AST 19 U/L (17-59); African American GFR (CKD) 78 (>60 ml/min/1.73 sqM); Albumin 4.1 g/dL (3.5-5.0); Alkaline Phosphatase 78 U/L (38-126); Amylase 65 U/L (30-110); Anion Gap 11 mmol/L; Blood Urea Nitrogen 20 mg/dL (9-20); Calcium 9.9 mg/dL (8.4-10.2); Carbon Dioxide 27 mmol/L (22-30); Chloride 99 mmol/L (98-107); Glucose 217 mg/dL (74-99); Lipase 144 U/L (23-300); Non-African American GFR(CKD) 67 (>60 ml/min/1.73 sqM); Potassium 3.9 mmol/L (3.5-5.1); Sodium 137 mmol/L (137-145); Total Bilirubin 1.1 mg/dL (0.2-1.3); Total Protein 6.6 g/dL (6.3-8.2)
[2023-05-31 08:38] LABS: C Reactive Protein 6.6 mg/dL (<1.0)
[2023-05-31] MEDS ORDERED: DEXAMETHASONE SOD PHOSPHATE 10 MG/ML 1 ML VIAL IVP STA (09:38)
--- NOTE | 2023-05-31 09:48 | CT ---
EXAMINATION TYPE: CT soft tissue neck w con CT DLP: 1197.8 mGycm, Automated exposure control for dose reduction was used. DATE OF EXAM: 05/31/2023 9:38 AM COMPARISON: 05/29/2023.. CLINICAL INDICATION:Male, 77 years old with history of Left sided facial and neck swelling; PHH, Left sided facial swelling TECHNIQUE: Standard enhanced CT of the neck. Axial sections with coronal and sagittal reformats were obtained. Contrast used:100 ml mL of Isovue 300 with IV Contrast, (None if empty) Oral contrast used: (None if empty) FINDINGS: Brain: Visualized portions are grossly unremarkable. Orbits: Unremarkable Sinuses: Grossly unremarkable. Spaces of the neck: There remains fat stranding and edema centered along the parotid tail and left conley bmandibular space with thickening of the overlying platysma muscle and slight asymmetric thickening o f the left sternocleidomastoid. The graft there is an enlarged 2.7 x 1.7 x 1.3 cm lymph node anterior to the sternocleidomastoid and outwardly protruding the thickened platysma muscle. 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 9 mm calcification is unchanged in the area of prio r submandibular gland on the left. Left palatine tonsil 3 mm calculus. Musculoskeletal: No acute osseous pathology. Lymph nodes: Multiple nonenlarged lymph nodes are seen along both anterior chains of the neck. Vascular structures: Visualized major arteries are patent without evidence of aneurysm. Thoracic Inlet/airway: Airway is patent. The lung apices are clear. Soft tissues/Thyroid: Right thyroid gland nodule measuring 19 x 12 mm.. Other: none. IMPRESSION Similar exam from 05/29/2023 CT with soft tissue swelling in the left neck likely reactive left neck lymph node.
--- NOTE | 2023-05-31 10:07 | CT ---
EXAMINATION TYPE: CT facial bones w con CT DLP: 1197. mGycm, Automated exposure control for dose reduction was used. DATE OF EXAM: 05/31/2023 9:39 AM COMPARISON: Same day CT neck. CLINICAL INDICATION:Male, 77 years old with history of Left sided facial and neck swelling; [facility], TECHNIQUE: Multiple unenhanced axial CT images were obtained of the facial bones soft tissue and bone windows. Coronal, axial and sagittal reformatted images were also provided in soft tissue and bone windows and submitted for interpretation. Contrast used: mL of , 100 cc Isovue-300. Oral contrast used: (none if empty) FINDINGS: Similar findings to same day CT neck. There remains fat stranding and edema centered along the parotid tail and left submandibular space wi th thickening of the overlying platysma muscle and slight asymmetric thickening of the left sternocle idomastoid. The graft there is an enlarged 2.7 x 1.7 x 1.3 cm lymph node anterior to the sternocleido mastoid and outwardly protruding the thickened platysma muscle. Clear and symmetric. Chronic atrophy versus surgically absent left submandibular gland. 9 mm calcification is unchanged in the area of prior submandibular gland on the left. Left palatine tonsil 3 mm calculus. There is no evidence of fracture, subluxation, dislocation, or significant soft tissue swelling. The temporal-mandibular joints appear symmetric. The visualized portion of the paranasal sinuses appear c lear. Bilaterally aphakia. IMPRESSION: 1. No evidence for acute fracture. 2. Soft tissue swelling partially visualized in the left neck as seen on same day CT neck. No organi zing fluid collection.
[2023-05-31] MEDS ORDERED: ONDANSETRON 4 MG/2 ML VIAL IVP PRN (10:45)
[2023-05-31] MEDS ORDERED: NALOXONE 0.4 MG/ML 1 ML VIAL IV PRN (10:45)
[2023-05-31] MEDS ORDERED: HYDROcodone/APAP 5-325MG 1 EACH TAB PO PRN (10:45)
[2023-05-31] MEDS ORDERED: ACETAMINOPHEN TAB 325 MG TAB PO PRN (10:45)
[2023-05-31] MEDS ORDERED: AMPICILLIN-SULBACTAM 3 GM in SODIUM CHLORIDE 0.9% 100 ML IVPB ONE (11:15)
[2023-05-31 12:00] LABS: Erythrocyte Sedimentation Rate 24 mm/Hr (0-20)
[2023-05-31] MEDS ORDERED: IBUPROFEN 800 MG TAB PO PRN (12:51)
[2023-05-31] MEDS ORDERED: DEXTROSE 50% SYRINGE 50 ML IVP PRN ×2 (14:14)
--- NOTE | 2023-05-31 14:16 | P.HPIM ---
History of Present Illness H&P Date: 05/31/23 HISTORY OF PRESENT ILLNESS This is a 77-year-old male patient with past medical history of hypertension, diabetes mellitus type 2, and non-Hodgkin's lymphoma. Patient was seen in the office on 05/29/2023 for swollen neck, found to have an enlarged lymph node concerning for abscess in the submandibular area. 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 Inflammation which extends from the left submandibular sp candida near the left parotid tail and down the anterior left side of the neck with corresponding thickening of the platysmal muscle and slight asymmetric thickening of the left sternocleidomastoid. Correlate for cellulitis and contiguous myositis. No discrete abscess formation. Large lymph node measuring 2.7 x 1.7 x 1.3 cm in the left side of the neck is probably reactive. Patient was started on Augmentin [id number] milligrams 1 every 12 hours and ibuprofen. However, despite treatment with antibiotics and nonsteroidals, patient had increasing redness and swelling on the left side of his face and neck. Patient went to the emergency center for further evaluation. CAT scan of soft tissue of the neck revealed similar exam from 05/29 with soft tissue swelling in the left neck likely reactive left neck lymph node. CAT scan of the facial bones revealed no evidence of acute fracture. Soft tissue swelling partially visualized the left neck as seen on same day CT of the neck. No organizing f luid collection. CBC was unremarkable. Sed rate 24. Electrolytes and renal function normal. Glucose 217. C-reactive protein 6.6.patient is seen today in the emergency center waiting for a bed on the [facility]. He has been started on Unasyn 3 g IV piggyback every 6 hours status post 1 dose of dexamethasone 10 mg IV push and a consult in place with ENT. REVIEW OF SYSTEMS Constitutional: No fever, no chills, no night sweats. No weight change. No weakness, fatigue or lethargy. No daytime sleepiness. EENT: No headache. No blurred vision or double vision, no loss of vision. No loss of Hearing, no ringing in the ears, no dizziness. No nasal drainage or congestion. No epistaxis. No sore throat.edema and redness to the left side of neck. Lungs: No shortness of breath, cough, no sputum production. No wheezing. Cardiovascular: No chest pain, no lower extremity edema. No palpitations. No paroxysmal nocturnal dyspnea. No orthopnea. No lightheadedness or dizziness. No syncopal episodes. Abdominal: No abdominal pain. No nausea, vomiting. No diarrhea. No constipation. No bloody or tarry stools. No loss of appetite. Genitourinary: No dysuria, increased frequency, urgency. No urinary retention. Musculoskeletal: No myalgias. No muscle weakness, no gait dysfunction, no frequent falls. No back pain. No neck pain. Integumentary: No wounds, no lesions. No rash or pruritus. No unusual bruising. No change in hair or nails. Neurologic: No aphasia. No facial droop. No change in mentation. No head injury. No headache. No paralysis. No paresthesia. Psychiatric: No depression. No anxiety. No mood swings. Endocrine: No abnormal blood sugars. No weight change. No excessive sweating or thirst. No cold intolerance. MEDICAL HISTORY hypertension diabetes mellitus type 2 Non-Hodgkin's lymphoma SURGICAL HISTORY colectomy with Dr. Herman 06/07/2020 Colonoscopy 04/27/2020 Vasectomy Bilateral cataract removal and intraocular lens implants 2021. SOCIAL HISTORY patient usually drinks 2-3 times per week 1-2 drinks at a time. He drinks one to 2 cups of coffee per day. No tobacco use. FAMILY HISTORY Father at age 83 from sepsis following valve replacement surgery. Mother at age 46 from pancreatic cancer. Patient has 2 brothers one has COPD and one with hypertension. Patient has 2 sisters and one with COPD and one sister with unknown type of cancer. Patient has one son and one daughter with no major medical problems. PHYSICAL EXAMINATION Gen: This is 77 year old male with no acute distress. HEENT: Head is atraumatic, normocephalic. Pupils equal, round. Sclerae is anicteric. NECK: Supple. No JVD. No lymphadenopathy. No thyromegaly. left submandibular gland area has edema and tenderness. LUNGS: Clear to auscultation. No wheezes or rhonchi. No intercostal retractions. HEART: Regular rate and rhythm. No murmur. ABDOMEN: Soft. Bowel sounds are present. No masses. No tenderness. EXTREMITIES: No pedal edema. No calf tenderness. NEUROLOGICAL: Patient is awake, alert and oriented x3. Cranial nerves 2 through 12 are grossly intact. ASSESSMENT AND PLAN 1. submandibular swelling possible abscess. Patient failed outpatient treatment with Augmentin. [facility]. Continue patient on Unasyn 3 g IV piggyback every 6 hours, continue Motrin 800 mg 3 times daily as needed.patient has been started on [place] 5325 1 every 4 hours as needed for pain. 2. hypertension. Continue losartan 50 mg daily. 3. diabetes mellitus type 2. Continue patient on metformin, to be resumed 48 h after contrast. Start patient on NovoLog scale before meals and at bedtime. 4. history of non-Hodgkin's lymphoma. 5. GI prophylaxis. Protonix 40 mg daily. 6. DVT prophylaxis. Heparin subcu. Patient will be admitted to the hospital for a minimum of 2 night stay. DISCHARGE PLAN Return home. Impression and plan of care have been directed as dictated by the signing physician. Carmita Bryant nurse practitioner acting as scribe for signing physician. Past Medical History Past Medical History: Cancer, Hypertension, Sleep Apnea/CPAP/BIPAP Additional Past Medical History / Comment(s): NEW DX NON HODGKIN'S LYMPHOMA, CHEMO LAST MARCH 2020 History of Any Multi-Drug Resistant Organisms: None Reported Additional Past Surgical History / Comment(s): vasectomy, rt groin lump CORE BIOPSY, COLONOSCOPY Past Anesthesia/Blood Transfusion Reactions: No Reported Reaction Additional Past Anesthesia/Blood Transfusion Reaction / Comment(s): STATES HE FELT SORE ALL OVER FOR DAYS. Past Psychological History: Anxiety Smoking Status: Never smoker Past Alcohol Use History: Occasional Past Drug Use History: None Reported - Past Family History Mother Family Medical History: Cancer Brother(s) Family Medical History: Cancer Additional Family Medical History / Comment(s): BROTHER #1-SKIN CANCER. BROTHER #2-TESTICULAR CANCER Medications and Allergies Home Medications Medication Instructions Recorded Confirmed Type Losartan Potassium [Cozaar] 50 mg PO DAILY 11/26/17 05/31/23 History Amoxic-Pot Clav 875-125Mg 1 tab PO BID 05/31/23 05/31/23 History [Augmentin 875-125] Aspirin EC [Ecotrin Low Dose] 81 mg PO DAILY 05/31/23 05/31/23 History Co Q-10 100mg 100 mg PO DAILY 05/31/23 05/31/23 History Ibuprofen [Motrin] 800 mg PO TID PRN 05/31/23 05/31/23 History Rosuvastatin [Crestor] 10 mg PO HS 05/31/23 05/31/23 History hydroCHLOROthiazide 12.5 mg PO DAILY 05/31/23 05/31/23 History metFORMIN HCL [Glucophage] 500 mg PO HS 05/31/23 05/31/23 History Allergies Allergy/AdvReac Type Severity Reaction Status Date / Time No Known Allergies Allergy Verified 05/31/23 11:45 Physical Exam Vitals: Vital Signs Temp Pulse Resp BP Pulse Ox 05/31/23 11:00 98.5 F 84 18 114/72 96 05/31/23 09:00 98.1 F 84 18 129/73 96 05/31/23 07:27 98.6 F 98 18 137/86 96 Intake and Output 05/30/23 05/31/23 05/31/23 22:59 06:59 14:59 Other: Weight 107.955 kg Results CBC & Chem 7: 05/31/23 07:49 05/31/23 07:49 Labs: Abnormal Lab Results - Last 24 Hours (Table) 05/31/23 05/31/23 Range/Units 07:49 07:49 ESR 24 H (0-20) mm/Hr Glucose 217 H (74-99) mg/dL C-Reactive Protein 6.6 H (<1.0) mg/dL
--- NOTE | 2023-05-31 15:43 | P.GSCN ---
History of Present Illness Consult date: 05/31/23 Reason for Consult: Left neck swelling Requesting physician: Jaylon Sam History of present illness: This is a 77-year-old male with a left neck swelling last week. This happened after he started vomiting and some chicken. The swelling occurred over a 2-3 day. And he saw his family physician Dr. Sam. He was placed on Augmentin and he took the Augmentin for 3 days and only consumes 3 doses. The swelling did no t go down and was advised to the emergency room for admission and evaluation. He tells me that the left neck mass is somewhat stable over the last 24 hours. Somewhat tender. Denies any fevers or chills. Denies any dysphagia. Denies any hemoptysis or any other otologic symptoms other than just this left neck swelling. CAT scan evaluation somewhat swelling appears to represent a large 3 cm left neck node. He has a history of lymphoma and has been treated by Dr. Solo last 2 years with some improvement. His first lymph node enlargement occurred in the morning on the right than on the right neck. I've been asked to consult regarding this left neck swelling. His white count is normal and again, he did not respond to antibiotic therapy. Review of Systems - Constitutional Constitutional Comment(s): 14 point review performed unremarkable Past Medical History Past Medical History: Cancer, Hypertension, Sleep Apnea/CPAP/BIPAP Additional Past Medical History / Comment(s): NEW DX NON HODGKIN'S LYMPHOMA, CHEMO LAST MARCH 2020 History of Any Multi-Drug Resistant Organisms: None Reported Additional Past Surgical History / Comment(s): vasectomy, rt groin lump CORE BIOPSY, COLONOSCOPY Past Anesthesia/Blood Transfusion Reactions: No Reported Reaction Additional Past Anesthesia/Blood Transfusion Reaction / Comm: STATES HE FELT SORE ALL OVER FOR DAYS. Past Psychological History: Anxiety Smoking Status: Never smoker Past Alcohol Use History: Occasional Past Drug Use History: None Reported - Past Family History Mother Family Medical History: Cancer Brother(s) Family Medical History: Cancer Additional Family Medical History / Comment(s): BROTHER #1-SKIN CANCER. BROTHER #2-TESTICULAR CANCER Medications and Allergies Home Medications Medication Instructions Recorded Confirmed Type Losartan Potassium [Cozaar] 50 mg PO DAILY 11/26/17 05/31/23 History Amoxic-Pot Clav 875-125Mg 1 tab PO BID 05/31/23 05/31/23 History [Augmentin 875-125] Aspirin EC [Ecotrin Low Dose] 81 mg PO DAILY 05/31/23 05/31/23 History Co Q-10 100mg 100 mg PO DAILY 05/31/23 05/31/23 History Ibuprofen [Motrin] 800 mg PO TID PRN 05/31/23 05/31/23 History Rosuvastatin [Crestor] 10 mg PO HS 05/31/23 05/31/23 History hydroCHLOROthiazide 12.5 mg PO DAILY 05/31/23 05/31/23 History metFORMIN HCL [Glucophage] 500 mg PO HS 05/31/23 05/31/23 History Allergies Allergy/AdvReac Type Severity Reaction Status Date / Time No Known Allergies Allergy Verified 05/31/23 11:45 Surgical - Exam Osteopathic Statement: *. No significant issues noted on an osteopathic structural exam other than those noted in the History and Physical/Consult. Vital Signs Temp Pulse Resp BP Pulse Ox 98.6 F 98 18 137/86 96 05/31/23 07:27 05/31/23 07:27 05/31/23 07:27 05/31/23 07:27 05/31/23 07:27 - General well developed, well nourished, no distress, no pain, obese - Eyes PERRL, normal ocular movement - ENT normal pinna, normal nares, normal mucosa, no congestion - Neck Large left neck swelling noted firm hard minimally movable. Measuring about 3 cm no venous distension, limited ROM - Respiratory normal expansion, normal respiratory effort - Neurologic normal coordination, normal sensation - Musculoskeletal normal gait, normal posture - Psychiatric oriented to time, oriented to person, oriented to place, speech is normal Results - Labs 05/31/23 07:49 05/31/23 07:49 Abnormal Lab Results - Last 24 Hours (Table) 05/31/23 05/31/23 Range/Units 07:49 07:49 ESR 24 H (0-20) mm/Hr Glucose 217 H (74-99) mg/dL C-Reactive Protein 6.6 H (<1.0) mg/dL Diabetes panel 05/31/23 Range/Units 07:49 Sodium 137 (137-145) mmol/L Potassium 3.9 (3.5-5.1) mmol/L Chloride 99 (98-107) mmol/L Carbon Dioxide 27 (22-30) mmol/L BUN 20 (9-20) mg/dL Creatinine 1.07 (0.66-1.25) mg/dL Glucose 217 H (74-99) mg/dL Calcium 9.9 (8.4-10.2) mg/dL AST 19 (17-59) U/L ALT 25 (4-49) U/L Alkaline Phosphatase 78 (38-126) U/L Total Protein 6.6 (6.3-8.2) g/dL Albumin 4.1 (3.5-5.0) g/dL Calcium panel 05/31/23 Range/Units 07:49 Calcium 9.9 (8.4-10.2) mg/dL Albumin 4.1 (3.5-5.0) g/dL Pituitary panel 05/31/23 Range/Units 07:49 Sodium 137 (137-145) mmol/L Potassium 3.9 (3.5-5.1) mmol/L Chloride 99 (98-107) mmol/L Carbon Dioxide 27 (22-30) mmol/L BUN 20 (9-20) mg/dL Creatinine 1.07 (0.66-1.25) mg/dL Glucose 217 H (74-99) mg/dL Calcium 9.9 (8.4-10.2) mg/dL Adrenal panel 05/31/23 Range/Units 07:49 Sodium 137 (137-145) mmol/L Potassium 3.9 (3.5-5.1) mmol/L Chloride 99 (98-107) mmol/L Carbon Dioxide 27 (22-30) mmol/L BUN 20 (9-20) mg/dL Creatinine 1.07 (0.66-1.25) mg/dL Glucose 217 H (74-99) mg/dL Calcium 9.9 (8.4-10.2) mg/dL Total Bilirubin 1.1 (0.2-1.3) mg/dL AST 19 (17-59) U/L ALT 25 (4-49) U/L Alkaline Phosphatase 78 (38-126) U/L Total Protein 6.6 (6.3-8.2) g/dL Albumin 4.1 (3.5-5.0) g/dL Assessment and Plan (1) Cervical lymphadenopathy Current Visit: Yes Status: Acute Code(s): R59.0 - LOCALIZED ENLARGED LYMPH NODES SNOMED Code(s): 992837149 Plan: This patient has a normal white count and has an enlarged lymph node in the left neck measuring about 3 cm. This node may be reactive and an empiric continued treatment with antibiotics has been started. Because of his history of lymphom a, recurrence of this malignancy is strongly considered. I've written for an ultrasound-guided core biopsy to be sent fresh for flow cytometry. Empiric treatment with antibiotics has already been instituted. I'm happy to see this patient on outpatient basis, anxious to see the biopsy report of the core biopsy left neck when available. Patient knows me and has my phone number and address to follow up with me on an outpatient basis. Thank you for allowing me to participate in the care of this patient. If I'm needed further, Do not hesitate to contact me Time with Patient: Greater than 30
[2023-05-31 16:56] LABS: Glucose,Whole Blood 284 mg/dL (70-110)
--- NOTE | 2023-05-31 17:05 | US ---
EXAMINATION TYPE: US thyroid st tissue head/neck DATE OF EXAM: 05/31/2023 COMPARISON: Same day CT neck CLINICAL INDICATION: Male, 77 years old with history of Left neck below parotid U/S please.; Hx nonho dgekins lymphoma. Patient states having bilateral neck palpables but has been on antibiotics- the ri ght has went away but not the left. Same day CT. TECHNIQUE: Multiple sonographic images taken of the left neck area of concern inferior to the paroti d FINDINGS: In the area of the patient's palpable abnormality located inferior to the left parotid, there is a lo bular very hypoechoic lesion which does not appear particularly hypervascular on Doppler. This measur es about 2.8 x 1.2 cm. IMPRESSION: Lobular hypoechoic lesion in the left neck inferior to the parotid measuring 2.8 x 1.2 cm. Finding is nonspecific, but may represent abnormal lymph node such as lymphoma or metastasis. Possibly reactive node, complex cystic cluster, or other pathology. Recommend correlation with biopsy findings for tis miguelina diagnosis.
[2023-05-31] MEDS: INSULIN ASPART (NovoLOG) 100 UNIT/ML VIAL SQ SCH ×2 (17:14→20:24)
[2023-05-31] MEDS: AMPICILLIN-SULBACTAM 3 GM in SODIUM CHLORIDE 0.9% 100 ML IVPB SCH (17:15)
[2023-05-31 19:46] LABS: Glucose,Whole Blood 331 mg/dL (70-110)
[2023-05-31] MEDS: ATORVASTATIN 20 MG TAB PO SCH (20:24)
[2023-05-31] MEDS ORDERED: metFORMIN 500 MG TAB PO SCH (21:00)
[2023-06-01] MEDS: AMPICILLIN-SULBACTAM 3 GM in SODIUM CHLORIDE 0.9% 100 ML IVPB SCH ×5 (00:31→23:39)
[2023-06-01 06:16] LABS: Glucose,Whole Blood 238 mg/dL (70-110)
[2023-06-01] MEDS: INSULIN ASPART (NovoLOG) 100 UNIT/ML VIAL SQ SCH ×4 (06:27→20:54)
[2023-06-01] MEDS ORDERED: NON FORMULARY DRUG (Co Q-10 100mg 100 MG) PO SCH (09:00)
[2023-06-01] MEDS: hydroCHLOROthiazide 12.5 MG CAP PO SCH (10:33)
[2023-06-01] MEDS: ASPIRIN 81 MG PO SCH (10:33)
[2023-06-01] MEDS: LOSARTAN 50 MG TAB PO SCH (10:34)
[2023-06-01 12:24] LABS: Glucose,Whole Blood 246 mg/dL (70-110)
--- NOTE | 2023-06-01 13:45 | US ---
ULTRASOUND GUIDED CORE BIOPSY OF LEFT NECK LYMPH NODE: CLINICAL HISTORY: Enlarged left neck lymph node FINDINGS: The procedure was explained to the patient. The risks, complications, benefits and alternatives were discussed and any questions were answered. Informed consent was obtained. Patient was placed supin e on the ultrasound table and prepped and draped in the usual sterile fashion. Utilizing a 18 gauge needle, four passes were made into the left neck lymph node. Patient was stable throughout the procedure. Pathology is pending. All elements of maximal barrier and sterile technique were utilized. IMPRESSION: 1. Successful ultrasound guided core biopsy left neck lymph node.
--- NOTE | 2023-06-01 14:09 | P.PN ---
Subjective Progress Note Date: 06/01/23 HISTORY OF PRESENT ILLNESS This is a 77-year-old male patient with past medical history of hypertension, d iabetes mellitus type 2, and non-Hodgkin's lymphoma. Patient was seen in the office on 05/29/2023 for swollen neck, found to have an enlarged lymph node concerning for abscess in the submandibular area. 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 Inflammation which extends from the left submandibular space near the left parotid tail and down the anterior left side of the neck with corresponding thickening of the platysmal muscle and slight asymmetric thickening of the left sternocleidomastoid. Correlate for cellulitis and contiguous myositis. No discrete abscess formation. Large lymph node measuring 2.7 x 1.7 x 1.3 cm in the left side of the neck is probably reactive. Patient was started on Augmentin [id number] milligrams 1 every 12 hours and ibuprofen. However, despite treatment with antibiotics and nonsteroidals, patient had increasing redness and swelling on the left side of his face and neck. Patient went to the emergency center for further evaluation. CAT scan of soft tissue of the neck revealed similar exam from 05/29 with soft tissue swelling in the left neck likely reactive left neck lymph node. CAT scan of the facial bones revealed no evidence of acute fracture. Soft tissue swelling partially visualized the left neck as seen on same day CT of the neck. No organizing fluid collection. CBC was unremarkable. Sed rate 24. Electrolytes and renal function normal. Glucose 217. C-reactive protein 6.6.patient is seen today in the emergency center waiting for a bed on the [facility]. He has been started on Unasyn 3 g IV piggyback every 6 hours status post 1 dose of dex amethasone 10 mg IV push and a consult in place with ENT. 06/01: Patient has been seen by Dr. Cisneros for which lymphoma recurrence is strongly considered and biopsy ordered Thyroid soft tissue of the head and neck ultrasound revealed lobular hypoechoic lesion in the left neck inferior to the parotid measuring 2.8 x 1.2 cm. Finding is nonspecific but may represent abnormal lymph node such as lymphoma or metastasis. Possibly reactive node, complex cystic cluster or other pathology. Patient underwent ultrasound-guided biopsy of the left neck lymph node by IR. REVIEW OF SYSTEMS Constitutional: No fever, no chills, no night sweats. No weight change. No weakness, fatigue or lethargy. No daytime sleepiness. EENT: No headache. No blurred vision or double vision, no loss of vision. No loss of Hearing, no ringing in the ears, no dizziness. No nasal drainage or congestion. No epistaxis. No sore throat.edema and redness to the left side of neck. Lungs: No shortness of breath, cough, no sputum production. No wheezing. Cardiovascular: No chest pain, no lower extremity edema. No palpitations. No paroxysmal nocturnal dyspnea. No orthopnea. No lightheadedness or dizziness. No syncopal episodes. Abdominal: No abdominal pain. No nausea, vomiting. No diarrhea. No constip ation. No bloody or tarry stools. No loss of appetite. Genitourinary: No dysuria, increased frequency, urgency. No urinary retention. Musculoskeletal: No myalgias. No muscle weakness, no gait dysfunction, no frequent falls. No back pain. No neck pain. Integumentary: No wounds, no lesions. No rash or pruritus. No unusual bruising. No change in hair or nails. Neurologic: No aphasia. No facial droop. No change in mentation. No head injury. No headache. No paralysis. No paresthesia. Psychiatric: No depression. No anxiety. No mood swings. Endocrine: No abnormal blood sugars. No weight change. No excessive sweating or thirst. No cold intolerance. PHYSICAL EXAMINATION Gen: This is 77 year old male with no acute distress. HEENT: Head is atraumatic, normocephalic. Pupils equal, round. Sclerae is anicteric. NECK: Supple. No JVD. No lymphadenopathy. No thyromegaly. left submandibular gland area has edema and tenderness. LUNGS: Clear to auscultation. No wheezes or rhonchi. No intercostal retractions. HEART: Regular rate and rhythm. No murmur. ABDOMEN: Soft. Bowel sounds are present. No masses. No tenderness. EXTREMITIES: No pedal edema. No calf tenderness. NEUROLOGICAL: Patient is awake, alert and oriented x3. Cranial nerves 2 through 12 are grossly intact. ASSESSMENT AND PLAN 1. submandibular swelling possible abscess but concerning for lymphoma recurrence S/P Left neck lymph node bx. Patient failed outpatient treatment with Augmentin. Patient admitted to the MedSurg floor, consult with ENT. Continue patient on Unasyn 3 g IV piggyback every 6 hours, continue Motrin 800 mg 3 times daily as needed.patient has been started on [place] 5325 1 every 4 hours as needed for pain. 2. hypertension. Continue losartan 50 mg daily. 3. diabetes mellitus type 2. Continue patient on metformin, to be resumed 48 h after contrast. Start patient on NovoLog scale before meals and at bedtime. 4. history of non-Hodgkin's lymphoma. 5. GI prophylaxis. Protonix 40 mg daily. 6. DVT prophylaxis. Heparin subcu. DISCHARGE PLAN Return home. Impression and plan of care have been directed as dictated by the signing physician. Carmita Bryant nurse practitioner acting as scribe for signing physician. Objective - Vital Signs Vital signs: Vital Signs Temp 98.0 F 06/01/23 09:50 Pulse 84 06/01/23 10:14 Resp 16 06/01/23 10:14 BP 153/85 06/01/23 10:14 Pulse Ox 96 06/01/23 10:14 FiO2 Intake & Output 05/31/23 06/01/23 06/01/23 18:59 06:59 18:59 Intake Total 709 Balance 709 Weight 107.955 kg 107.955 kg Intake: Oral 709 Other: Voiding Method Toilet # Voids 1 - Labs CBC & Chem 7: 05/31/23 07:49 05/31/23 07:49 Labs: Abnormal Lab Results - Last 24 Hours (Table) 05/31/23 05/31/23 06/01/23 Range/Units 16:54 19:44 05:03 POC Glucose (mg/dL) 284 H 331 H (70-110) mg/dL Hemoglobin A1c 7.3 H (<=6.0) % 06/01/23 06/01/23 Range/Units 06:15 12:22 POC Glucose (mg/dL) 238 H 246 H (70-110) mg/dL Hemoglobin A1c (<=6.0) %
[2023-06-01 17:41] LABS: Glucose,Whole Blood 207 mg/dL (70-110)
[2023-06-01] MEDS: ATORVASTATIN 20 MG TAB PO SCH (20:54)
[2023-06-01 20:58] LABS: Glucose,Whole Blood 216 mg/dL (70-110)
[2023-06-02 05:52] LABS: Glucose,Whole Blood 155 mg/dL (70-110)
[2023-06-02] MEDS: AMPICILLIN-SULBACTAM 3 GM in SODIUM CHLORIDE 0.9% 100 ML IVPB SCH (05:58)
[2023-06-02] MEDS: INSULIN ASPART (NovoLOG) 100 UNIT/ML VIAL SQ SCH (05:59)
[2023-06-02] MEDS: ASPIRIN 81 MG PO SCH (08:21)
[2023-06-02] MEDS: LOSARTAN 50 MG TAB PO SCH (08:22)
[2023-06-02] MEDS: hydroCHLOROthiazide 12.5 MG CAP PO SCH (08:22)
[2023-06-02 08:57] VITALS: BP 128/58; PULSE 71; RESP 16; TEMP 98.2
--- NOTE | 2023-06-02 11:07 | P.DS ---
Providers Date of admission: 05/31/23 11:29 Expected date of discharge: 06/02/23 Attending physician: Jaylon Sam Consults: 05/31/23 10:45 Consult Physician Urgent Consulting Provider: Ramu Cisneros Consult Reason/Comments: Left sided facial/neck cellulitis Do you want consulting provider notified?: Yes Primary care physician: Jaylon Sam Hospital Course: HISTORY OF PRESENT ILLNESS This is a 77-year-old male patient with past medical history of hypertension, diabetes mellitus type 2, and non-Hodgkin's lymphoma. Patient was seen in the office on 05/29/2023 for swollen neck, found to have an enlarged lymph node concerning for abscess in the submandibular area. 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 Inflammation which extends from the left submandibular space near the left parotid tail and down the anterior left side of the neck with corresponding thickening of the platysmal muscle and slight asymmetric thickening of the left sternocleidomastoid. Correlate for cellulitis and contiguous myositis. No discrete abscess formation. Large lymph node measuring 2.7 x 1.7 x 1.3 cm in the left side of the neck is probably reactive. Patient was started on Augmentin [id number] milligrams 1 every 12 hours and ibuprofen. However, despite treatment with antibiotics and nonsteroidals, patient had increasing redness and swelling on the left side of his face and neck. Patient went to the emergency center for further evaluation. CAT scan of soft tissue of the neck revealed similar exam from 05/29 with soft tissue swelling in the left neck likely reactive left neck lymph node. CAT scan of the facial bones revealed no evidence of acute fracture. Soft tissue swelling partially visualized the left neck as seen on same day CT of the neck. No organizing fluid collection. CBC was unremarkable. Sed rate 24. Electrolytes and renal function normal. Glucose 217. C-reactive protein 6.6.patient is seen today in the emergency center waiting for a bed on the [facility] floor. He has been started on Unasyn 3 g IV piggyback every 6 hours status post 1 dose of dexamethasone 10 mg IV push and a consult in place with ENT. 06/01: Patient has been seen by Dr. Cisneros for which lymphoma recurrence is strongly considered and biopsy ordered Thyroid soft tissue of the head and neck ultrasound revealed lobular hypoechoic lesion in the left neck inferior to the parotid measuring 2.8 x 1.2 cm. Finding is nonspecific but may represent abnormal lymph node such as lymphoma or metastasis. Possibly reactive node, complex cystic cluster or other pathology. Patient underwent ultrasound-guided biopsy of the left neck lymph node by IR. Discharge diagnoses: 1. Left submandibular lymphadenopath likely reactive rule out recurrence of NHL post Tissue biopsy by IR . 2. hypertension and hypertensive cardiovascular disease. 3. diabetes mellitus type 2. 4. history of non-Hodgkin's lymphoma. 5. GI prophylaxis. 6. DVT prophylaxis. Plan - Discharge Summary Discharge Rx Participant: No New Discharge Prescriptions: No Action Losartan Potassium [Cozaar] 50 mg PO DAILY metFORMIN HCL [Glucophage] 500 mg PO HS Rosuvastatin [Crestor] 10 mg PO HS hydroCHLOROthiazide 12.5 mg PO DAILY Co Q-10 100mg 100 mg PO DAILY Aspirin EC [Ecotrin Low Dose] 81 mg PO DAILY Ibuprofen [Motrin] 800 mg PO TID PRN PRN Reason: Pain Amoxic-Pot Clav 875-125Mg [Augmentin 875-125] 1 tab PO BID Discharge Medication List Losartan Potassium [Cozaar] 50 mg PO DAILY 11/26/17 [History] Amoxic-Pot Clav 875-125Mg [Augmentin 875-125] 1 tab PO BID 05/31/23 [History] Aspirin EC [Ecotrin Low Dose] 81 mg PO DAILY 05/31/23 [History] Co Q-10 100mg 100 mg PO DAILY 05/31/23 [History] Ibuprofen [Motrin] 800 mg PO TID PRN 05/31/23 [History] Rosuvastatin [Crestor] 10 mg PO HS 05/31/23 [History] hydroCHLOROthiazide 12.5 mg PO DAILY 05/31/23 [History] metFORMIN HCL [Glucophage] 500 mg PO HS 05/31/23 [History] Follow up Appointment(s)/Referral(s): Jaylon Sam MD [Primary Care Provider] - 1-2 days
[2023-06-02] MEDS ORDERED: HEPARIN SODIUM,PORCINE 5,000 UNIT/ML 1 ML VIAL SQ SCH (16:00)
[2023-06-02] MEDS ORDERED: metFORMIN 500 MG TAB PO SCH (21:00)
== END 2023-06-02 11:26 | disposition home or self-care (01) ==
LOC: EC 07:19 → 6NMEDSUR 11:29
PROVIDERS: ADMIT Internal Medicine; ATTEND Internal Medicine
DX: R59.0 Localized enlarged lymph nodes (principal); I11.9 Hypertensive heart disease without heart failure; E11.9 Type 2 diabetes mellitus without complications; G47.30 Sleep apnea, unspecified; F41.9 Anxiety disorder, unspecified; Z85.72 Personal history of non-Hodgkin lymphomas; Z92.21 Personal history of antineoplastic chemotherapy; Z79.82 Long term (current) use of aspirin; Z79.84 Long term (current) use of oral hypoglycemic drugs; Z79.899 Other long term (current) drug therapy
CPT/HCPCS: 96366 ×3; 96372 ×4; 96365; 96375; 99285; 36415; 88305; 80053; 85652; 82150; 83605; 83690; 85025; 86140; 87040; 83036; 76942; 76536; 38505; 70487; 70491; G0378 ×3; J1100; J0295 ×3; Q9967

== ENCOUNTER → 2023-12-27 | Outpatient (CLI) | payer MEDICARE, BC ==
--- NOTE | 2024-01-07 17:01 | PE ---
EXAMINATION TYPE: PET CT fusion skull to thigh DATE OF EXAM: 12/27/2023 COMPARISON: 05/31/2023 CT neck Prior PET/CT: 12/22/2022 HISTORY: Lymphoma TECHNIQUE: Following the intravenous administration of 11.5 mCi of F-18 FDG, whole body images are p erformed from the skull base to the midthigh. Images are reviewed on the computer in the coronal, ax ial, and sagittal planes. Reconstructed rotating images are created on independent workstation and r eviewed on the computer. A localization and attenuation correction CT is performed in conjunction w ith the PET scan. DLP: 953.05 mGycm SCAN: Subsequent Blood glucose: 147 mg/dL Average Mediastinum SUV: 2.48 Average Liver SUV: 2.75 FINDINGS: NECK: No abnormal uptake THORAX: No abnormal uptake ABDOMEN: No abnormal uptake PELVIS: No abnormal uptake OSSEOUS STRUCTURES: There may be some uptake within the region of the T6 right vertebral body, image 99, SUV 4.[address]: Some small scattered lymph nodes in the left submandibular region. No abnormal uptak e is evident. There are coronary artery calcification is present. Postsurgical bowel changes in the h epatic region. Diverticulosis without acute diverticulitis present COMPARISON: No significant interval change IMPRESSION: 1. No suspicious uptake to suggest recurrent or metastatic lymphoma
== END | disposition home or self-care (01) ==
LOC: RADPETMAIN 08:00
PROVIDERS: ATTEND Internal Medicine Hematology & Oncology
DX: C82.01 Follicular lymphoma grade I, lymph nodes of head, face, and neck (principal)
CPT/HCPCS: 78815; A9552

== ENCOUNTER → 2024-03-11 | Outpatient (CLI) | payer MEDICARE, BC ==
--- NOTE | 2024-03-11 09:31 | US ---
EXAMINATION TYPE: US carotid duplex BILAT DATE OF EXAM: 03/11/2024 COMPARISON: NONE CLINICAL INDICATION: Male, 78 years old with history of I65.23 US CARTOID STEN BI; TECHNIQUE: Carotid duplex ultrasound examination. Indirect Doppler criteria was utilized. FINDINGS: EXAM MEASUREMENTS: RIGHT: Peak Systolic Velocity (PSV) cm/sec ----- Right CCA: 69.9 ----- Right ICA: 89.7 ----- Right ECA: 92.1 ICA/CCA ratio: 1.3 RIGHT: End Diastole cm/sec ----- Right CCA: 17.1 ----- Right ICA: 23.6 ----- Right ECA: 18.7 LEFT: Peak Systolic Velocity (PSV) cm/sec ----- Left CCA: 65.5 ----- Left ICA: 57.1 ----- Left ECA: 85.6 ICA/CCA ratio: 0.9 LEFT: End Diastole cm/sec ----- Left CCA: 17.1 ----- Left ICA: 14.9 ----- Left ECA: 14.6 VERTEBRALS (direction of flow): Right Vertebral: Antegrade Left Vertebral: Antegrade Rhythm: Normal No significant stenosis mild atherosclerotic plaque. IMPRESSION: No significant stenosis. Criteria for Assigning % of Stenosis / Diameter reduction (Estimation based on the indirect measurements of the internal carotid artery velocities (ICA PSV). 1. Normal (no stenosis)=ICA PSV < 125 cm/s: ratio < 2.0: ICA EDV<40 cm/s. 2. Less than 50% stenosis=ICA PSV < 125 cm/s: ratio < 2.0: ICA EDV<40 cm/s. 3. 50 to 69% stenosis=ICA PSV of 125 to 230 cm/s: ration 2.0 ? 4.0: ICA EDV 40-100 cm/s. 4. Greater than 70% stenosis to near occlusion= ICA PSV > 230 cm/s: ratio > 4.0: ICA EDV > 100 cm/s. 5. Near occlusion= ICA PSV velocities may be low or undetectable: variable ratio and ICA EDV. 6. Total occlusion=unable to detect flow. [facility], , 03/11/2024 9:29 AM
--- NOTE | 2024-03-12 07:07 | CA ---
Transthoracic Echo Report Name: Rob Reyes Age: 78 Gender: M : 1945 Exam Date: 03/11/2024 08:39 Exam Location: [facility] Ht (in): 73 Wt (lb): 238 Ordering Physician: Jaylon Sam MD Attending/Referring Phys: Jaylon Sam MD [employer] Eloina Huizar RDCS Procedure CPT: Indications: I25.10 ATHSCL HEART DISEASE OF [place] CORONARY ART Cardiac Hx: Technical Quality: Fair Contrast 1: Total Dose (mL): Contrast 2: Total Dose (mL): MEASUREMENTS (Male / Female) Normal Values 2D ECHO LV Diastolic Diameter PLAX 5.5 cm 4.2 - 5.9 / 3.9 - 5.3 cm LV Systolic Diameter PLAX 2.9 cm IVS Diastolic Thickness 1.1 cm 0.6 - 1.0 / 0.6 - 0.9 cm LVPW Diastolic Thickness 1.3 cm 0.6 - 1.0 / 0.6 - 0.9 cm LV Relative Wall Thickness 0.4 RV Internal Dim ED PLAX 2.3 cm LA Systolic Diameter LX 4.1 cm 3.0 - 4.0 / 2.7 - 3.8 cm LV Diastolic Volume MOD BP 86.0 cm??? 67 - 155 / 56 - 104 cm??? LV Systolic Volume MOD BP 34.3 cm??? 22 - 58 / 19 - 49 cm??? LV Ejection Fraction MOD BP 60.1 % >= 55 % LV Cardiac Index MOD BP 1560.0 cm???/min???m??? LV Diastolic Volume MOD 4C 94.6 cm??? LV Systolic Volume MOD 4C 33.1 cm??? LV Ejection Fraction MOD 4C 65.0 % LV Cardiac Index MOD 4C 1856.4 cm???/min???m??? LV Diastolic Length 4C 8.3 cm LV Systolic Length 4C 6.8 cm LV Diastolic Volume MOD 2C 73.5 cm??? LV Systolic Volume MOD 2C 32.7 cm??? LV Ejection Fraction MOD 2C 55.6 % LV Cardiac Index MOD 2C 1234.2 cm???/min???m??? LV Diastolic Length 2C 7.7 cm LV Systolic Length 2C 6.2 cm M-MODE Aortic Root Diameter MM 3.6 cm LA Systolic Diameter MM 3.8 cm LA Ao Ratio MM 1.1 AV Cusp Separation MM 2.3 cm DOPPLER Mitral E Point Velocity 72.0 cm/s Mitral A Point Velocity 78.8 cm/s Mitral E to A Ratio 0.9 MV Deceleration Time 308.7 ms MV E' Velocity 7.2 cm/s Mitral E to MV E' Ratio 10.0 TR Peak Velocity 177.6 cm/s TR Peak Gradient 12.6 mmHg Right Ventricular Systolic Press 17.6 mmHg FINDINGS Left Ventricle Left ventricular ejection fraction is estimated at 60-65 %. Normal left ventricular systolic function with no obvious regional wall motion abnormalities. Left ventricular cavity size normal. Mildly increased left ventricular wall thickness. Right Ventricle Right ventricle not well visualized. Right ventricular systolic pressure within normal limits. Right Atrium Mild right atrial dilatation. Left Atrium Mildly increased left atrial diameter. Mitral Valve Structurally normal mitral valve. Trace mitral regurgitation. No mitral stenosis. Aortic Valve Trileaflet aortic valve. No aortic valve stenosis or regurgitation. Tricuspid Valve Structurally normal tricuspid valve. No tricuspid stenosis. Trace tricuspid regurgitation. Pulmonic Valve Structurally normal pulmonic valve. No pulmonic stenosis. No pulmonic regurgitation. Pericardium No pericardial or pleural effusion. Echo free space anterior to the right ventricle likely represents a fat pad. Aorta Aorta at upper limits of normal. CONCLUSIONS Normal biventricular systolic function Normal pulmonary artery systolic pressure No significant valvular abnormalities noted No pericardial effusion Previewed by: Dr. Philipp Ugalde MD (Electronically Signed) Final Date: 12 March 2024 07:07
== END | disposition home or self-care (01) ==
LOC: RADECHMAIN 08:26
PROVIDERS: ATTEND Internal Medicine
DX: I65.23 Occlusion and stenosis of bilateral carotid arteries (principal); I25.10 Atherosclerotic heart disease of native coronary artery without angina pectoris
CPT/HCPCS: 93306; 93880

== ENCOUNTER 2024-04-15 08:59 | Day surgery (SDC) | payer MEDICARE, BC ==
[~2024-04-15 08:59] MED LIST changes: +LIDOCAINE 1% (10MG/ML) FOR IV START INTRADERMA PRN; -SODIUM CHLORIDE 0.9% 500 ML 500 ML in EMPTY BAG 1 BAG IV PRN
[2024-04-15 09:18] VITALS: RESP 16; TEMP 97.8
[2024-04-15] MEDS: IV FLUID CONTINUATION 1,000 ML IV ONE (09:26)
[2024-04-15] MEDS: LACTATED RINGERS 1,000 ML IV SCH (09:26)
[2024-04-15] MEDS ORDERED: LIDOCAINE 2% (PF) 20 MG/ML 5 ML VIAL ONE (09:39)
[2024-04-15] MEDS ORDERED: PROPOFOL 10 MG/ML 20 ML VIAL IV ONE (09:39)
--- NOTE | 2024-04-15 09:45 | P.GSHP ---
History of Present Illness H&P Date: 04/15/24 Chief Complaint: Colon cancer screening 78-year-old male known to our service. Patient underwent previous laparoscopic right colectomy for polyp with high-grade dysplasia. Here today for routine follow-up. No bowel complaints. Past Medical History Past Medical History: Cancer, Diabetes Mellitus, Hypertension, Sleep Apnea/CPAP/BIPAP Additional Past Medical History / Comment(s): NEW DX NON HODGKIN'S LYMPHOMA, CHEMO LAST MARCH 2020 uses cpap History of Any Multi-Drug Resistant Organisms: None Reported Past Surgical History: Bowel Resection Additional Past Surgical History / Comment(s): vasectomy, rt groin lump CORE BIOPSY, COLONOSCOPY, bowel resection 2018, Past Anesthesia/Blood Transfusion Reactions: No Reported Reaction Additional Past Anesthesia/Blood Transfusion Reaction / Comment(s): STATES HE FELT SORE ALL OVER FOR DAYS. Smoking Status: Never smoker - Past Family History Mother Family Medical History: Cancer Brother(s) Family Medical History: Cancer Additional Family Medical History / Comment(s): BROTHER #1-SKIN CANCER. BROTHER #2-TESTICULAR CANCER Medications and Allergies Home Medications Medication Instructions Recorded Confirmed Type Losartan Potassium [Cozaar] 50 mg PO DAILY 11/26/17 04/15/24 History Aspirin EC [Ecotrin Low Dose] 81 mg PO DAILY 05/31/23 04/15/24 History Co Q-10 100mg 100 mg PO DAILY 05/31/23 04/15/24 History Rosuvastatin [Crestor] 10 mg PO HS 05/31/23 04/15/24 History hydroCHLOROthiazide 12.5 mg PO DAILY 05/31/23 04/15/24 History metFORMIN HCL [Glucophage] 500 mg PO HS 05/31/23 04/15/24 History Pioglitazone [Actos] 30 mg PO DAILY 04/11/24 04/15/24 History Allergies Allergy/AdvReac Type Severity Reaction Status Date / Time No Known Allergies Allergy Verified 04/15/24 09:11 Surgical - Exam Vital Signs Temp Pulse Resp BP Pulse Ox 97.8 F 81 16 155/73 98 04/15/24 09:16 04/15/24 09:16 04/15/24 09:16 04/15/24 09:16 04/15/24 09:16 Physical exam: General: Well-developed, well-nourished HEENT: Normocephalic, sclerae nonicteric Abdomen: Nontender, nondistended Extremities: No edema Neuro: Alert and oriented Assessment and Plan (1) Colonic mass Narrative/Plan: Will proceed with colonoscopy at this time. Current Visit: No Status: Acute Code(s): K63.89 - OTHER SPECIFIED DISEASES OF INTESTINE SNOMED Code(s): 988639099
--- NOTE | 2024-04-15 09:58 | P.PCN ---
Date of Procedure: 04/15/24 Procedure(s) Performed: PREOPERATIVE DIAGNOSIS: History of polyps POSTOPERATIVE DIAGNOSIS: Transverse colon polyp, diverticulosis PROCEDURE: Colonoscopy with snare polypectomy ANESTHESIA: MAC SURGEON: Jason Herman M.D. SPECIMENS: Polyp ENDOSCOPIC PROCEDURE: The patient was placed on the endoscopy table in the left decubitus position. The Olympus colonoscope was inserted into the anus and passed under direct visualization to the ileocolonic anastomosis. In the transverse colon right near the anastomosis there was a small polyp that was removed using the snare with cautery technique. The remainder of the transverse descending sigmoid and rectum appeared normal with the exception of significant diverticulosis. Digital rectal examination was normal. The patient was taken to the recovery room in stable condition per anesthesia guidelines. RECOMMENDATIONS: Await biopsy results. Tentatively plan repeat colonoscopy 3 to 5 years.
[2024-04-15 10:02] VITALS: PULSE 78
[2024-04-15 10:11] LABS: Glucose,Whole Blood 117 mg/dL (70-110)
[2024-04-15 10:15] VITALS: BP 136/67
== END 2024-04-15 10:30 | disposition home or self-care (01) ==
LOC: ORWHC2ENDO 08:59
PROVIDERS: ATTEND Surgery
DX: Z12.11 Encounter for screening for malignant neoplasm of colon (principal); D12.3 Benign neoplasm of transverse colon; K57.30 Diverticulosis of large intestine without perforation or abscess without bleeding; E11.9 Type 2 diabetes mellitus without complications; I10 Essential (primary) hypertension; G47.33 Obstructive sleep apnea (adult) (pediatric); Z79.82 Long term (current) use of aspirin; Z79.84 Long term (current) use of oral hypoglycemic drugs; Z79.899 Other long term (current) drug therapy; Z86.0109 Personal history of other colon polyps; Z90.49 Acquired absence of other specified parts of digestive tract; Z85.72 Personal history of non-Hodgkin lymphomas
CPT/HCPCS: 88305; 45385; J2704; J2003

== ENCOUNTER → 2025-01-15 | Outpatient (CLI) | payer MEDICARE, BC ==
--- NOTE | 2025-01-15 16:03 | PE ---
EXAMINATION TYPE: PET CT fusion skull to thigh DATE OF EXAM: 01/15/2025 COMPARISON: Prior PET/CT December 27, 2023 and older studies. HISTORY: Lymphoma originally diagnosed right inguinal region in 2018 TECHNIQUE: Following the intravenous administration of 11.42 mCi of F-18 FDG, whole body images are performed from the skull base to the midthigh. Images are reviewed on the computer in the coronal, a xial, and sagittal planes. Reconstructed rotating images are created on independent workstation and reviewed on the computer. A localization and attenuation correction CT is performed in conjunction with the PET scan. SCAN: Subsequent Scan FINDINGS: SKULL BASE AND NECK: No new areas of abnormal hypermetabolic uptake. CHEST, MEDIASTINUM, AND HILAR REGION: No new areas of abnormal hypermetabolic uptake. ABDOMEN AND PELVIS: Normal excretion. Mild nonspecific bowel uptake. No definitive new areas of abnor mal hypermetabolic uptake with particular attention to the right groin. OSSEOUS STRUCTURES: No definitive new areas of abnormal hypermetabolic uptake. OTHER CT: Bilateral aphakia. Atrophic or absent left submandibular gland redemonstrated. Calcificatio n axial image 44 Near this level again seen. Nasal septal deviation again seen. Surgical clips inferior right posterio r cervical triangle redemonstrated. Persistent hypodense 2.0 cm cm right thyroid nodule. Thyroid ultr asound follow-up advised this has not been performed. Stable 8mm benign calcified nodule or granuloma right upper lobe axial image 97. Moderate to severe coronary artery calcification and/or stents. Cor relate clinically. Diverticular changes involving the sigmoid colon redemonstrated. Occasional scattered pelvic phleboli ths. Mildly enlarged prostate consistent with BPH. IMPRESSION: No new hypermetabolic masses or lymph nodes to suggest active lymphoma recurrence. No sig nificant change from most recent prior PET/CT. [facility], , 01/15/2025 4:01 PM
== END | disposition home or self-care (01) ==
LOC: RADPETMAIN 09:26
PROVIDERS: ATTEND Internal Medicine Hematology & Oncology
DX: C82.00 Follicular lymphoma grade I, unspecified site (principal)
CPT/HCPCS: 78815; A9552